=== PATIENT | male | born 1950 | race Caucasian/White ===

== ENCOUNTER 2016-10-25 16:40 | Observation (INO) | payer OTHER ==
[~2016-10-25] VITALS: Ht 172.7 cm; Wt 82.6 kg
[2016-10-25] MEDS: NS 1,000 ML IV SCH (01:00)
[~2016-10-25 16:40] MED LIST: LOPR50TA PO; METO1INJ PO; METO50TA2 PO; RISP1TAB21 PO
[2016-10-25 17:36] LABS: BASO % 0.4 % (0.0-1.0); EOS # 0.4 K/mm3 (0.0-0.50); EOS % 3.5 % (0.0-3.0); LARGE UNSTAINED CELL # 0.3 K/mm3 (0.0-0.4); LARGE UNSTAINED CELL % 2.9 % (0.0-4.0); LYMPH # 2.2 K/mm3 (1.5-4.5); LYMPH % 19.6 % (24.0-44.0); MEAN CORPUSCULAR HEMOGLOBIN 33.5 pg (27.0-33.0); MEAN CORPUSCULAR HGB CONC 35.3 g/dl (32.0-36.5); MONO # 0.4 K/mm3 (0.0-0.8); MONO % 3.8 % (0.0-5.0); NEUTROPHILS # 7.6 K/mm3 (1.8-7.7); NEUTROPHILS % 69.8 % (36.0-66.0); PLATELET COUNT, AUTOMATED 204 k/mm3 (150-450); RED CELL DISTRIBUTION WIDTH 12.7 % (11.5-14.5)
[2016-10-25 17:41] LABS: ANION GAP 13 MEQ/L (8-16); BLOOD UREA NITROGEN 10 MG/DL (7-18); CALCIUM LEVEL 8.2 MG/DL (8.8-10.2); CARBON DIOXIDE LEVEL 21 MEQ/L (21-32); CHLORIDE LEVEL 101 MEQ/L (98-107); CREATININE FOR GFR 0.77 MG/DL (0.70-1.30); GLOMERULAR FILTRATION RATE > 60.0 (>49); GLUCOSE, FASTING 120 MG/DL (80-110); POTASSIUM SERUM 3.7 MEQ/L (3.5-5.1); SODIUM LEVEL 135 MEQ/L (136-145)
--- NOTE | 2016-10-25 18:16 | REP ---
CT BRAIN WITHOUT CONTRAST: 10/25/2016. Clinical history: Syncope. Comparison: 04/22/2013. Findings: Lateral ventricles midline, symmetric and not abnormally dilated. There is mild cerebral atrophy, age appropriate and unchanged. Atrophy is greatest in the frontal and temporal lobes. Basal ganglia are symmetric and grossly normal. De Souza/white junction differentiation is well maintained. There is no vascular territory infarct, intracranial hemorrhage, mass, mass effect or edema. No extra-axial fluid collection. A few tiny calcifications along the falx. Brainstem unremarkable. Cerebellum shows no atrophy or mass. Basal cisterns are intact. Mastoids were intact. Sinuses show deviation of the nasal septum towards the right posteriorly and towards the left anteriorly. Globes and intraorbital contents symmetric and grossly normal. The calvarium and the skull base show no fracture or focal lesion. There are atherosclerotic calcifications in the carotid siphons. Impression: 1. No evidence of acute infarct, intracranial hemorrhage, mass, mass effect or edema. Mild cortical atrophy, stable since the 04/22/2013 exam. 2. Vascular calcifications in the carotid siphons. 3. Deviation of the nasal septum as described. No fracture skull base or calvarium. Signed by Bari Shabazz MD 10/25/2016 08:06 P
[2016-10-25] MEDS ORDERED: TETANUS/DIPHTHERIA TOX ADSORB ADULT 0.5ML SYR/VIAL (90714) IM ONE (19:00)
[2016-10-25] MEDS ORDERED: ceFAZolin SOD 1 GM in D5W MINI-BAG PLUS 50 ML IV ONE (19:00)
[2016-10-25 19:14] LABS: FREE T4 1.22 NG/DL (0.76-1.46)
[2016-10-25] MEDS ORDERED: BACITRACIN OINT 30GM TOP ONE (19:15)
[2016-10-25] MEDS ORDERED: MULTIVITAMIN -ADULT INJECTION 10 ML, THIAMINE INJection 100 MG, FOLIC ACID 1 MG in NS 1... IV ONE (19:30)
[2016-10-25] MEDS ORDERED: ONDANSETRON 4MG/2ML VIAL (J2405) IV PRN (20:15)
[2016-10-25] MEDS ORDERED: ACETAMINOPHEN 500 MG TAB PO PRN (20:15)
[2016-10-25] MEDS ORDERED: LORazepam 2 MG TAB PO PRN (20:15)
[2016-10-25] MEDS ORDERED: PATIENT COMMENT (20:21)
--- NOTE | 2016-10-25 22:10 | REPUSA ---
Clinical history: alcohol abuse, abdominal distention pain. Findings: The pancreas is limited in visualization secondary to overlying bowel gas, but appears mara sly unremarkable. The liver demonstrates heterogeneous increased echotexture and echogenicity, with n o mass lesions. The gallbladder contains a small amount of echogenic, non-shadowing debris. There is no gallbladder wall thickening. The common bile duct measures 4 mm and is within normal limits. The r ight kidney measures 11.9 x 4.4 x 6.2 cm, and is unremarkable. There is no ascites within any portion of the abdomen. Impression: 1. Fatty infiltration of the liver. 2. Gallbladder sludge. No gallstones appreciated. 3. No evidence of abdominal ascites.
--- NOTE | 2016-10-25 22:12 | HPE ---
DATE OF ADMISSION: 10/25/2016 PRIMARY CARE PROVIDER: At the [facility] ([place]) [place]. CHIEF COMPLAINT: 1. Fall in the hallway of apartment building with loss of consciousness after hitting the head when the patient was drunk. Emergency medical services (EMS) noted a heart rate of 30s on arrival. 2. Laceration of the back of the head. HISTORY OF PRESENT ILLNESS: This is a 66-year-old male who is a chronic alcoholic, drinks heavily 8-10 beers a day, who had gone out to a bar yesterday and had drank heavily. Early this morning, his neighbor heard a noise in the hallway and found the patient lying on the floor unconscious after hitting the head. The patient woke up, he was unconscious for about 2 minutes, however he was also intoxicated. The patient was noted to have a laceration at the back of the head and EMS was called. EMS found the patient to have a heart rate in the 30s on arrival which improved to 80s. He was alert and oriented times two. The patient does not remember who called the ambulance and how he came to the emergency room. He does remember going to the bar and the next thing he remembers is that he is in the hospital emergency room. He denied any fever or chills. Denies any headache except the region where he hurt himself. He received seven alok in the emergency room. He denied any chest pain or shortness of breath. Denied any abdominal pain, nausea, or vomiting. He does say he sometimes has diarrhea when he drinks heavily. He does complain of chronic back pain for which he takes marijuana. The patient is being admitted to the hospitalist service for syncope evaluation and alcohol intoxication. PAST MEDICAL HISTORY: 1. Hypertension. 2. Delusional disorder, persecutory type for which he was admitted to inpatient mental health unit (IM) in 2013 for a week. 3. Hypercholesteremia. 4. History of gastric ulcers in the past. PAST SURGICAL HISTORY: 1. Right knee repair. 2. Tonsillectomy. SOCIAL HISTORY: Patient abuses alcohol. Patient also uses marijuana, which he says he uses for his back pain and he is in the process of getting his marijuana use legalized. He is also a smoker. Does not use any other recreational drugs. HOME MEDICATIONS: - atenolol 50 mg daily, which he says he is taking ALLERGIES: PREDNISONE causes suicidal ideas and psychosis. REVIEW OF SYSTEMS: All ten point review of systems are negative except those mentioned in history of present illness (HPI). PHYSICAL EXAMINATION: VITAL SIGNS: Temperature 98.1, pulse 80, respiratory rate 18, blood pressure 100/56, pulse oximetry 97% at room air. GENERAL: Patient awake, alert, oriented times three, sitting up in bed, in no acute distress. HEENT: Normocephalic. Has a scalp trauma with several alok. Moist mucous membranes. Anicteric eyes. CHEST: Clear to auscultation. CARDIOVASCULAR: S1, S2, regular. No rub, murmur, or gallop. ABDOMEN: Obese, soft, nontender. Bowel sounds are present. There is an umbilical hernia which is reducible and nontender. EXTREMITIES: No edema. LABORATORY DATA: WBC 11, hemoglobin 14.8, platelet 204. Sodium 135, potassium 3.7, chloride 101, bicarbonate 21, BUN 10, creatinine 0.77, glucose 120, calcium 8.2. Liver function tests are normal, TSH 6.1, free T4 1.22. Blood alcohol level 0.242. RADIOLOGY: Head CT shows mild cortical atrophy stable since 2014, vascular calcifications in the carotid siphons, deviation of nasal septum. There is no fracture of the skull base or calvarium. No evidence of acute infarct, intracranial hemorrhage, or mass or edema. EKG sinus rhythm, rate of 72. ASSESSMENT: This is a 66-year-old male admitted for syncope and alcohol abuse. PLAN: 1. For syncope, we will monitor the patient on progressive care unit (PCU). Patient did have a documented pulse rate in 30s in the emergency medical services (EMS) sheet, however his EKG shows sinus rhythm with a rate in 70s. Will monitor the patient in progressive care unit (PCU) for any arrhythmias. Syncope is most probably related to alcohol abuse and alcohol intoxication. 2. Alcohol intoxication/abuse. Patient now coming out of his intoxicated state. Patient is noted to have mild distention of the abdomen so we will get an ultrasound of the abdomen to rule out for any ascites or for any hepatosplenomegaly. Will monitor the patient for withdrawal symptoms. Will place the patient on Clinical [place] Withdrawal Assessment (CIWA) protocol and also give Serax twice a day. 3. Hypertension. Patient says that he takes atenolol daily, however at present his blood pressure is in low normal and also he had some bradycardia so we will hold off on atenolol at this point. May need to change his antihypertensive medications on discharge. 4. Bradycardia as noted by emergency medical services (EMS). Could be related to atenolol. Will keep atenolol on hold and monitor the patient on telemetry for any other cardiac arrhythmias. 5. Deep venous thrombosis (DVT) prophylaxis. Early ambulation, thromboembolism deterrent (MICHELLE) stockings and sequential compression device. 6. Laceration of the scalp. Wound has seven alok. Bleeding has stopped, looks clean. Will continue to monitor that.
[2016-10-25 23:00] VITALS: BP 172/80
[2016-10-25 23:35] VITALS: BP 172/80
[2016-10-25] MEDS: OXAZEPAM 10 MG CAP PO SCH (23:44)
[2016-10-25] MEDS: THIAMINE 100 MG TAB PO SCH (23:44)
[2016-10-26] VITALS (9 sets, daily range): BP systolic 134–173; BP diastolic 82–95
--- NOTE | 2016-10-26 08:30 | ECGEPIP ---
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
[2016-10-26] MEDS: OXAZEPAM 10 MG CAP PO SCH ×2 (09:12→21:14)
[2016-10-26] MEDS: THIAMINE 100 MG TAB PO SCH ×2 (09:12→20:47)
[2016-10-26] MEDS: MULTIVITAMINS/MINERALS THERAP 1 TAB PO SCH (09:13)
[2016-10-26] MEDS: NS 1,000 ML IV SCH (09:13)
[2016-10-26] MEDS: FOLIC ACID 1 MG TAB PO SCH (09:13)
[2016-10-26 09:46] LABS: ALBUMIN/GLOBULIN RATIO 1.14 (1.00-1.93); ALKALINE PHOSPHATASE 97 U/L (45-117); ALT/SGPT 27 U/L (12-78); ANION GAP 11 MEQ/L (8-16); AST/SGOT 19 U/L (15-37); BILIRUBIN,TOTAL 0.5 MG/DL (0.2-1.0); BLOOD UREA NITROGEN 11 MG/DL (7-18); CALCIUM LEVEL 9.2 MG/DL (8.8-10.2); CARBON DIOXIDE LEVEL 25 MEQ/L (21-32); CHLORIDE LEVEL 107 MEQ/L (98-107); CREATININE FOR GFR 0.72 MG/DL (0.70-1.30); GLOMERULAR FILTRATION RATE > 60.0 (>49); GLUCOSE, FASTING 97 MG/DL (80-110); POTASSIUM SERUM 4.4 MEQ/L (3.5-5.1); SODIUM LEVEL 143 MEQ/L (136-145); TOTAL PROTEIN 7.5 GM/DL (6.4-8.2)
[2016-10-26 12:00] LABS: MEAN CORPUSCULAR HEMOGLOBIN 33.2 pg (27.0-33.0); MEAN CORPUSCULAR HGB CONC 35.7 g/dl (32.0-36.5); RED CELL DISTRIBUTION WIDTH 12.9 % (11.5-14.5); WHITE BLOOD COUNT 7.8 K/mm3 (4.0-10.0)
--- NOTE | 2016-10-26 12:31 | IPNPDOC ---
Subjective Date Seen The patient was seen on 10/26/16. Subjective Chief Complaint/HPI The patient is a 66-year-old male admitted with a reason for visit of Alcohol Intoxication,Laceration Of Head,Syncope. He was brought to [facility] via ambulance after he had been out drinking and as per neighbor fell and hit his head, suffering a laceration requiring 7 alok. He doesn't remember being brought to the hospital and had thought he drove himself here. This morning he was seen laying comfortably in bed, AAOx3. Upon beginning the exam he immediately lapsed into a monologue about how his neighbor is poisoning him with insecticides. He has a past medical history of delusional disorder persecutory subtype. It was difficult to keep the patient on track for the exam due to his delusions. His nurse reports no events overnight, no telemetry events overnight , and patient states he slept comfortably. General: Reports: Normal Appetite, Other Symptoms (feels well, wants to go home ) Eyes: Denies: Vision change ENT: Reports: Head Aches (located around his laceration in right occipital region) Pulmonary: Denies: Dyspnea, Cough Cardiovascular: Reports: Lt Headedness (when rising from a seated position), Denies: Chest Pain Gastrointestinal: Denies: Nausea, Vomiting, Abdominal Pain, Diarrhea Psych: Reports: Anxiety (anxious that his neighbor has access to his apartment while he is in the hospital) Objective Physical Examination General Exam: Positive: Alert, Cooperative, No Acute Distress, Other ( normocephalic with laceration in right occipital region, well-nourished, appears stated age ) Eye Exam: Positive: PERRLA, Conjunctiva & lids normal ENT Exam: Positive: Atraumatic, Mucous membr. moist/pink Neck Exam: Positive: Supple, Negative: JVD Chest Exam: Positive: Clear to auscultation, Normal air movement, Negative: Rales, Rhonchi, Wheezing Heart Exam: Positive: Rate Normal, Regular Rhythm, Normal S1, Normal S2 Telemetry: Positive: No significant arrhythmia, Sinus Abdomen Exam: Positive: Normal bowel sounds, Soft, Other (distended), Negative: Tenderness Extremity Exam: Positive: Normal pulses, Negative: Cyanosis, Edema, Swelling Skin Exam: Positive: Nl turgor and temperature Psych Exam: Positive: Anxiety, Oriented x 3, Negative: Mental status NL (frequently vocalized delusions about his neighbor poisoning him with insectides ) Assessment /Plan Assessment 1. Syncope. Likely 2/2 intoxication. Patient is in PCU being monitored on telemetry, with no recorded events overnight. Patient admits to becoming light headed when rising from a seated position. Orthostatic vital signs were ordered to assess for orthostatic hypotension as a possible etiology, likely cause can be residual effects from bradycardic heart rate on admission. 2. chronic alcoholism. Patient is on CIWA protocol. Patient is receiving Serax 10mg BID PO, Ativan 2mg PRN, thiamine, folate, and a multivitamin. Patient received banana bag on 10/25 in ED. Stopped the IV fluid this morning, patient has adequate PO fluid intake. 3. HTN. Patient normally takes atenolol to control his BP. Yesterday he was bradycardic at 30 per the EMT who brought him to the hospital and no atenolol was given. Today his BP was 148/84 at 8am. Due to patient's age and JNC 8 recommendations this is an acceptable blood pressure to keep him at. We will continue to monitor him. 4. Delusional Disorder persecutory subtype. Patient was admitted to [facility] in 2014 for one week. Patient expresses similar delusions as his 2014 admission about his neighbor poisoning him with insecticides. After discussing with Dr. Blair, we feel like this is the patient baseline and we have consulted psych and will wait for their recommendations. 5. Scalp laceration. Patient has a right sided occipital laceration that required 7 alok in the ED yesterday. Today the wound appears clean and dry. There is noticeable erythema and dried blood around the wound, but no pus/ drainage is appreciated. Continue to monitor. 6. Headache. Patient reports this as a dull ache. Patient is on acetaminophen 1000mg Q6HP PRN PO. 7. DVT prophylaxis. TEDS and SCDs are in place. Plan/VTE VTE Prophylaxis Ordered?: Yes VS, I&O, 24H, Fishbone Vital Signs/I&O Vital Signs Date Time Temp Pulse Resp B/P (MAP) Pulse Ox O2 Delivery O2 Flow Rate FiO2 10/26/16 08:05 74 148/84 10/26/16 07:49 97.7 18 94 Room Air 10/25/16 16:44 2.0 Laboratory Data 24H LABS Laboratory Tests 2 10/25/16 17:04: White Blood Count 11.0H, Red Blood Count 4.42, Hemoglobin 14.8, Hematocrit 41.9L , Mean Corpuscular Volume 95.0, Mean Corpuscular Hemoglobin 33.5H, Mean Corpuscular Hemoglobin Concent 35.3, Red Cell Distribution Width 12.7, Platelet Count 204, Neutrophils (%) (Auto) 69.8H, Lymphocytes (%) (Auto) 19.6L, Monocytes (%) (Auto) 3.8, Eosinophils (%) (Auto) 3.5H, Basophils (%) (Auto) 0.4 , Neutrophils # (Auto) 7.6, Lymphocytes # (Auto) 2.2, Monocytes # (Auto) 0.4, Eosinophils # (Auto) 0.4, Basophils # (Auto) 0.0, Large Unclassified Cells % 2.9 , Large Unclassified Cells # 0.3, Anion Gap 13, Glomerular Filtration Rate > 60.0, Blood Urea Nitrogen 10, Creatinine 0.77, Sodium Level 135L, Potassium Level 3.7, Chloride Level 101, Carbon Dioxide Level 21, Calcium Level 8.2L, Total Creatine Kinase 93, Creatine Kinase MB 3.1, Creatine Kinase MB Relative Index 3.33, Troponin I < 0.02, Thyroid Stimulating Hormone (TSH) 6.150H, Free Thyroxine 1.22, Ethyl Alcohol Level 0.242H 10/26/16 08:52: Anion Gap 11, Glomerular Filtration Rate > 60.0, Blood Urea Nitrogen 11, Creatinine 0.72, Sodium Level 143#, Potassium Level 4.4, Chloride Level 107, Carbon Dioxide Level 25, Calcium Level 9.2, Aspartate Amino Transf (AST/SGOT) 19 , Alanine Aminotransferase (ALT/SGPT) 27, Alkaline Phosphatase 97, Total Bilirubin 0.5, Total Protein 7.5, Albumin 4.0, Albumin/Globulin Ratio 1.14 CBC/BMP Laboratory Tests 10/25/16 17:04 Red Blood Count 4.42, Mean Corpuscular Volume 95.0, Mean Corpuscular Hemoglobin 33.5 H, Mean Corpuscular Hemoglobin Concent 35.3, Red Cell Distribution Width 12.7, Neutrophils (%) (Auto) 69.8 H, Lymphocytes (%) (Auto) 19.6 L, Monocytes (% ) (Auto) 3.8, Eosinophils (%) (Auto) 3.5 H, Basophils (%) (Auto) 0.4, Neutrophils # (Auto) 7.6, Lymphocytes # (Auto) 2.2, Monocytes # (Auto) 0.4, Eosinophils # (Auto) 0.4, Basophils # (Auto) 0.0, Calcium Level 8.2 L, Total Creatine Kinase 93 10/26/16 08:52 Calcium Level 9.2, Aspartate Amino Transf (AST/SGOT) 19, Alanine Aminotransferase (ALT/SGPT) 27, Alkaline Phosphatase 97, Total Bilirubin 0.5, Total Protein 7.5, Albumin 4.0 GME ATTESTATION GME ATTESTATION My preceptor for this patient encounter was physically present in the building during the encounter and was fully available. As needed, all aspects of the patient interview, examination, medical decision making process, and medical care plan development were reviewed and approved by the preceptor. Preceptor is aware and concurs with the plan as stated in the body of this note and will attest to such by his/her cosignature. BEAU JACKSON DO Oct 26, 2016 10:19
[2016-10-26 13:10] LABS: ANION GAP 6 MEQ/L (8-16); BLOOD UREA NITROGEN 14 MG/DL (7-18); CALCIUM LEVEL 9.5 MG/DL (8.8-10.2); CARBON DIOXIDE LEVEL 26 MEQ/L (21-32); CHLORIDE LEVEL 108 MEQ/L (98-107); CREATININE FOR GFR 0.74 MG/DL (0.70-1.30); GLOMERULAR FILTRATION RATE > 60.0 (>49); GLUCOSE, FASTING 122 MG/DL (80-110); POTASSIUM SERUM 4.3 MEQ/L (3.5-5.1); SODIUM LEVEL 140 MEQ/L (136-145)
[2016-10-27] VITALS: BP 134/79
[2016-10-27 04:34] VITALS: BP 159/95
[2016-10-27 07:27] LABS: MEAN CORPUSCULAR HEMOGLOBIN 33.7 pg (27.0-33.0); MEAN CORPUSCULAR HGB CONC 35.8 g/dl (32.0-36.5); MEAN CORPUSCULAR VOLUME 94.2 fl (80.0-96.0); RED CELL DISTRIBUTION WIDTH 12.8 % (11.5-14.5); WHITE BLOOD COUNT 6.8 K/mm3 (4.0-10.0)
[2016-10-27 07:38] VITALS: BP 158/74
[2016-10-27 07:53] LABS: ANION GAP 6 MEQ/L (8-16); BLOOD UREA NITROGEN 12 MG/DL (7-18); CALCIUM LEVEL 9.1 MG/DL (8.8-10.2); CARBON DIOXIDE LEVEL 30 MEQ/L (21-32); CHLORIDE LEVEL 105 MEQ/L (98-107); CREATININE FOR GFR 0.79 MG/DL (0.70-1.30); GLOMERULAR FILTRATION RATE > 60.0 (>49); GLUCOSE, FASTING 134 MG/DL (80-110); POTASSIUM SERUM 4.3 MEQ/L (3.5-5.1); SODIUM LEVEL 141 MEQ/L (136-145)
[2016-10-27] MEDS: MULTIVITAMINS/MINERALS THERAP 1 TAB PO SCH (08:21)
[2016-10-27] MEDS: FOLIC ACID 1 MG TAB PO SCH (08:21)
[2016-10-27] MEDS: THIAMINE 100 MG TAB PO SCH (08:21)
[2016-10-27] MEDS: OXAZEPAM 10 MG CAP PO SCH (08:21)
[2016-10-27] MEDS ORDERED: INFLUENZA VIRUS VACCINE HIGH DOSE 0.5 ML SYRINGE (90662) IM ONE (09:00)
[2016-10-27] MEDS ORDERED: PREVNAR 13 VACCINE SYRINGE (CPT CODE:90670) IM ONE (09:00)
[2016-10-27 09:04] VITALS: BP 158/74
[2016-10-27] MEDS ORDERED: SLF 3 ML SYR IV PRN (10:30)
[2016-10-27] MEDS ORDERED: LISI-538 PO (11:07)
[2016-10-27] MEDS ORDERED: SLF 3 ML SYR IV SCH (14:00)
--- NOTE | 2016-10-27 19:53 | DS.PDOC ---
Discharge Summary General Date of Admission Oct 25, 2016 at 20:07 Date of Discharge 10/27/16 Attending Physician: JG LAWTON MD Discharge Summary PROCEDURES PERFORMED DURING STAY: EKG ADMITTING DIAGNOSES: 1. Syncope 2. Alcohol intoxication/abuse. 3. Hypertension. 4. Bradycardia as noted by emergency medical services (EMS). 5. Laceration of the scalp. DISCHARGE DIAGNOSES: 1. Syncope. 2. chronic alcoholism. 3. HTN. 4. Delusional Disorder persecutory subtype. 5. Scalp laceration. 6. Headache. COMPLICATIONS/CHIEF COMPLAINT: Alcohol Intoxication,Laceration Of Head,Syncope. HISTORY OF PRESENT ILLNESS: This is a 66-year-old male who is a chronic alcoholic, drinks heavily 8-10 beers a day, who had gone out to a bar on 10/24 and had drank heavily. Early in the morning on 10/25, his neighbor heard a noise in the hallway and found the patient lying on the floor unconscious after hitting the head. The patient woke up, he was unconscious for about 2 minutes, however he was also intoxicated. The patient was noted to have a laceration at the back of the head and EMS was called. EMS found the patient to have a heart rate in the 30s on arrival which improved to 80s. He was alert and oriented times two. The patient does not remember who called the ambulance and how he came to the emergency room. He does remember going to the bar and the next thing he remembers is that he is in the hospital emergency room. He denied any fever or chills. Denied any headache except the region where he hurt himself. He received seven alok in the emergency room. He denied any chest pain or shortness of breath. Denied any abdominal pain, nausea, or vomiting. He does say he sometimes has diarrhea when he drinks heavily. He does complain of chronic back pain for which he takes marijuana. The patient was admitted to the hospitalist service for syncope evaluation and alcohol intoxication. HOSPITAL COURSE: Patient was admitted to hospitalist service on 10/25 for reason of syncope with fall and alcohol intoxication. Syncope was likely secondary to the intoxication. Patient was in PCU being monitored on telemetry, with no recorded events during his stay. Patient admitted to becoming light headed when rising from a seated position. Orthostatic vital signs were ordered to assess for orthostatic hypotension as a possible etiology and were negative. Another likely cause can be residual effects from bradycardic heart rate on admission. Patient has a history of chronic alcoholism. Patient was on CIWA protocol. Patient received Serax 10mg BID PO, Ativan 2mg PRN, thiamine, folate, and a multivitamin. Patient received banana bag on 10/25 in ED. His IV fluids were stopped 10/26 as patient had adequate PO fluid intake. HTN. Patient normally takes atenolol to control his BP. Upon admission he was bradycardic at 30 per the EMT who brought him to the hospital and no atenolol was given, furthermore no atenolol was required during his hospital stay as BP remained within normal limits. Patient has a history of Delusional Disorder persecutory subtype. Patient was admitted to [facility] in 2013 for one week. Patient expresses similar thought processes that warranted his 2014 admission about his neighbor poisoning him with insecticides. Dr. Kirkland was consulted yesterday for assessment and concluded that no inpatient admission was necessary at this time. Patient has a right sided occipital laceration sustained during his fall that required 7 alok in the ED on 10/25. Today the wound appears clean and dry. There is noticeable erythema and dried blood around the wound, but no pus/ drainage is appreciated. Patient reports a dull headache amenable to acetaminophen 1000mg Q6HP PRN PO. DISCHARGE MEDICATIONS: Please see below. ALLERGIES: Please see below. PHYSICAL EXAMINATION ON DISCHARGE: VITAL SIGNS: Please see below. GENERAL: patient alert and awake, in no apparent distress, resting comfortably in bed HEENT: normocephalic, mucous membranes are moist and pink, no scleral icterus, laceration in the right occipital region with [address] NECK: supple, no JVD, no lymphadenopathy CARDIOVASCULAR EXAMINATION: regular rate and rhythm, positive S1 and S2, no murmurs/rubs/gallops appreciated RESPIRATORY EXAMINATION: clear to auscultation bilaterally ABDOMINAL EXAMINATION: EXTREMITIES: no edema/cyanosis/swelling SKIN: no rashes, normal turgor/temperature LABORATORY DATA: Please see below. IMAGING: Head CT revealed no evidence of acute infarct, intracranial hemorrhage , mass, mass effect or edema. Mild cortical atrophy, stable since the 2013 exam. Vascular calcifications were appreciated in the carotid sinus as well as deviation of the nasal septum. No fracture of the skull base or calvarium was appreciated. US of the abdomen revealed fatty infiltration of the liver, gallbladder sludge with no gallstones appreciated. There was no evidence of abdominal ascites. ACTIVITY: As tolerated. DIET: As tolerated. DISCHARGE PLAN: 1. Syncope. Likely 2/2 intoxication. Patient was monitored on telemetry during his hospital stay with no recorded events/arrhythmias. Patient is currently stable. Orthostatic vital signs were negative. As precaution and because he was bradycardic on arrival, his scheduled atenolol has been discontinued. 2. chronic alcoholism. Patient was on CIWA protocol during his hospital stay. Patient is recieved Serax 10mg BID PO, Ativan 2mg PRN, thiamine, folate, and a multivitamin. Patient is currently stable, no episodes of seizures, delirium tremens or other symptomatology of alcohol withdrawal and none were reported from previous admissions. Patient will not be discharged on CIWA medications for this reason. Educated patient on alcohol cessation. 3. HTN. Patient normally takes atenolol to control his BP. Upon arrival he was bradycardic at 30bpm per the EMT who brought him to the hospital and no atenolol was given. No blood pressure medication was given during his stay. His home atenolol was cancelled and a patient was discharged with a script for Lisinopril 20mg once a day, as ASHLEY inhibitors are first line for hypertension per JNC 8 recommendations. 4. Delusional Disorder persecutory subtype. Dr. Kirkland evaluated the patient yesterday and concluded he did not require inpatient psychiatric treatment at this time. I recommend follow up care with a psychiatrist as outpatient. 5. Scalp laceration. Patient has a right sided occipital laceration that required 7 alok in the ED yesterday. Today the wound appears clean and dry. There is noticeable erythema and dried blood around the wound, but no pus/ drainage is appreciated. Patient is instructed to follow up with his PCP in 3 days for staple removal. 6. Headache. Patient reports this as a dull ache at the area of his laceration amenable to acetaminophen. Patient is to follow up with his PCP in 3 days to remove the alok, which should alleviate the headache. His PCP can recommend management for his headache if it still persists. DISCHARGE INSTRUCTIONS: 1. Fill paper script for Lisinopril. ITEMS TO FOLLOWUP ON OUTPATIENT: 1. Follow up with PCP in 3 days to remove alok. 2. Follow up with outpatient psychiatrist via [place]. DISCHARGE CONDITION: [Stable]. TIME SPENT ON DISCHARGE: Greater than minutes Vital Signs/I&Os Vital Signs Date Time Temp Pulse Resp B/P (MAP) Pulse Ox O2 Delivery O2 Flow Rate FiO2 10/27/16 09:04 75 158/74 10/27/16 07:38 97.1 18 97 Room Air 10/25/16 16:44 2.0 Laboratory Data Labs 24H Laboratory Tests 2 10/26/16 12:15: Anion Gap 6L, Glomerular Filtration Rate > 60.0, Blood Urea Nitrogen 14, Creatinine 0.74, Sodium Level 140, Potassium Level 4.3, Chloride Level 108H, Carbon Dioxide Level 26, Calcium Level 9.5 10/27/16 07:10: Anion Gap 6L, Glomerular Filtration Rate > 60.0, Blood Urea Nitrogen 12, Creatinine 0.79, Sodium Level 141, Potassium Level 4.3, Chloride Level 105, Carbon Dioxide Level 30, Calcium Level 9.1 CBC/BMP Laboratory Tests 10/26/16 12:15 Calcium Level 9.5 10/27/16 07:10 Calcium Level 9.1, Red Blood Count 4.72, Mean Corpuscular Volume 94.2, Mean Corpuscular Hemoglobin 33.7 H, Mean Corpuscular Hemoglobin Concent 35.8, Red Cell Distribution Width 12.8 Discharge Medications Scheduled Lisinopril (Lisinopril) 20 Mg Tab, 20 MG PO DAILY Allergies Coded Allergies: Prednisone (Verified Adverse Reaction, Severe, SUICIDAL IDEATION with STEROIDS, 04/22/13) BEAU JACKSON DO Oct 27, 2016 12:06
--- NOTE | 2016-11-27 12:58 | MHCR ---
DATE OF CONSULTATION: 10/26/2016 HISTORY OF PRESENT ILLNESS: I was asked to see this 66-year-old man who was admitted to the medical service after the patient fell and experienced a laceration on the back of his head and some loss of consciousness. The patient has a chronic problem with alcohol abuse. He had just returned from the bar. The concern is that the patient appears to have chronic delusions about his neighbors spraying pesticide into his apartment. Since the patient has a history of at least prior psychiatric hospitalization to [facility] inpatient mental health unit in 2013, they felt that it would be good to consult psychiatrist. I did review the records from the patient's prior hospitalization and at that point, the patient indicated that again he had chronic delusions about the neighbor spraying pesticides into his apartment and he had stated that he felt that she was trying to kill him and that he had wanted to throw her out the window; however, the patient denied having any true intent of hurting anybody. He was discharged on Risperdal 1 mg at night, but the patient is chronically noncompliant with any medications or outpatient treatment. When I saw the patient today, he does indeed continue to have chronic delusions about the neighbor trying to poison him through pesticides that she sprays through to his apartment. He however states that he has at times said that he has wanted to throw her out the window but that he does not really mean it or having any intentions of harming her. He states that he has never harmed anybody before. He does not have much insight about this being part of his illness; however. I did not elicit any other symptoms, such as depressive symptoms or problems with anxiety or any hypomanic or manic-like symptoms. PAST PSYCHIATRIC HISTORY: This is as noted above. He was admitted to [facility] in 2013 with similar presentation at [facility] inpatient mental health unit and then subsequent to that, soon after that admission, he was admitted to [facility]. He has no history of any suicidal attempts. SUBSTANCE ABUSE: The patient does have a problem with abusing alcohol and drinks daily. He also uses cannabis chronically. FAMILY HISTORY: He is adopted and so unable to obtain family history. MENTAL STATUS EXAMINATION: The patient is alert and oriented times three. He is pleasant. He is cooperative. He is verbally spontaneous. There is no formal thought disorder noted. His mood is good. Affect is full range and appropriate. He does have chronic paranoid delusions about a neighbor trying to kill him. He is not psychotic, suicidal or homicidal. Concentration is fairly good. Memory intact. Insight and judgment is fair. He has little insight about having a psychiatric illness. DIAGNOSES: 1. Delusional disorder, persecutory type. 2. Alcohol use disorder, severe. 3. Cannabis use disorder, severe. TREATMENT RECOMMENDATIONS: The patient does have chronic paranoid delusions about his neighbor; however, at this point, he continues to state that he has no intentions of hurting this neighbor. He has no history of hurting anyone. He is chronically noncompliant with his psychiatric medications and has very poor insight about his psychiatric illness. However, he is not felt to be a danger to himself or others at this point and there is no indication for hospitalization at this point. IZA
== END 2016-10-27 12:45 | disposition home or self-care (01) ==
LOC: M ED 16:40 → M ED INP 20:07 → M PCU 23:32
PROVIDERS: ADMIT Internal Medicine Nephrology; ATTEND Internal Medicine
DX: R55 Syncope and collapse (principal); F10.20 Alcohol dependence, uncomplicated; F12.10 Cannabis abuse, uncomplicated; I10 Essential (primary) hypertension; R00.1 Bradycardia, unspecified; F22 Delusional disorders; S01.01XA Laceration without foreign body of scalp, initial encounter; W19.XXXA Unspecified fall, initial encounter; Y92.099 Unspecified place in other non-institutional residence as the place of occurrence of the external cause; Y99.9 Unspecified external cause status; R51 Headache; Z79.899 Other long term (current) drug therapy; F17.210 Nicotine dependence, cigarettes, uncomplicated; Z88.8 Allergy status to other drugs, medicaments and biological substances; Y93.9 Activity, unspecified; Z91.81 History of falling
CPT/HCPCS: 12002; 36415; 70450; 76705; 80048; 80053; 82550; 82553; 84439; 84443; 84484; 85025; 85027; 90471; 90662; 90670; 90714; 93005; 93041; 94760; 96361; 96374; 99285; G0009; G0378; G0480; J0690; J3411

== ENCOUNTER 2020-12-04 22:55 | Emergency (ER) | payer OTHER ==
[~2020-12-04] VITALS: Ht 167.6 cm; Wt 72.7 kg
[~2020-12-04 22:55] MED LIST changes: +LISI20TA33 PO; +PATIENT COMMENT
--- OUTSIDE RECORDS SUMMARY | 2020-12-04 22:58 | CCD ---
Author Author [facility] Address Unknown Phone Unavailable Support Name Relationship Address Phone DISABLED Next Of Kin Unknown Unavailable UN Next Of Kin Unknown Unavailable SHELTON PORTER Next Of Kin [address] [place] [address] Re-disclosure Warning The records that you are about to access may contain information from federally-assisted alcohol or drug abuse programs. If such information is present, then the following federally mandated warning applies: This information has been disclosed to you from records protected by federal confidentiality rules (42 CFR part 2). The federal rules prohibit you from making any further disclosure of this information unless further disclosure is expressly permitted by the written consent of the person to whom it pertains or as otherwise permitted by 42 CFR part 2. A general authorization for the release of medical or other information is NOT sufficient for this purpose. The Federal rules restrict any use of the information to criminally investigate or prosecute any alcohol or drug abuse patient.The records that you are about to access may contain highly sensitive health information, the redisclosure of which is protected by Article 27-F of the [facility] Public Health law. If you continue you may have access to information: Regarding HIV / AIDS; Provided by facilities licensed or operated by the [facility] Office of Mental Health; or Provided by the [facility] Office for People With Developmental Disabilities. If such information is present, then the following [facility] mandated warning applies: This information has been disclosed to you from confidential records which are protected by state law. State law prohibits you from making any further disclosure of this information without the specific written consent of the person to whom it pertains, or as otherwise permitted by law. Any unauthorized further disclosure in violation of state law may result in a fine or longterm sentence or both. A general authorization for the release of medical or other information is NOT sufficient authorization for further disc losure. Medications No Information Insurance Providers Payer name Policy type / Coverage type Policy ID Covered democrat ID Covered democrat's relationship to maya Policy Maya Plan Information 'S ADMINISTRATION [id number] SP [id number] [facility] [id number] SP [id number] MEDICAID [id number] SP [id number] Problems, Conditions, and Diagnoses No Information Surgeries/Procedures No Information Results No Information Social History No Information
--- NOTE | 2020-12-04 23:59 | REPVR ---
PROCEDURE INFORMATION: Exam: XR Chest Exam date and time: 12/04/2020 11:39 PM Age: 70 years old Clinical indication: Other: Muscle aches for 5 days TECHNIQUE: Imaging protocol: XR of the chest. Views: 1 view. COMPARISON: No relevant prior studies available. FINDINGS: Lungs: Increased lucency of lung suggesting bullous change. Minimal lateral right base infiltrate. Pleural spaces: Unremarkable. No pleural effusion. No pneumothorax. Heart/Mediastinum: Unremarkable. No cardiomegaly. Bones/joints: Unremarkable. IMPRESSION: 1. Suggestion of some degree of COPD with bullous change. 2. Minimal lateral right base infiltrate. Electronically signed by: Lv Webber On 12/04/2020 23:58:48 PM
[2020-12-05 00:12] LABS: HEMATOCRIT 36.4 % (42.0-52.0); HEMOGLOBIN 12.7 g/dl (13.5-17.5); MEAN CORPUSCULAR HEMOGLOBIN 29.7 pg (27.0-33.0); MEAN CORPUSCULAR HGB CONC 34.9 g/dl (32.0-36.5); MEAN CORPUSCULAR VOLUME 85.2 fl (80.0-96.0); PLATELET COUNT, AUTOMATED 394 10^3/uL (150-450); RED BLOOD COUNT 4.27 10^6/uL (4.30-6.10); WHITE BLOOD COUNT 16.9 10^3/uL (4.0-10.0)
[2020-12-05 00:26] LABS: INR 1.23; PROTHROMBIN TIME 15.9 SECONDS (12.7-14.5)
[2020-12-05 00:27] LABS: PARTIAL THROMBOPLASTIN TIME 31.3 SECONDS (25.9-37.0)
[2020-12-05 00:45] LABS: ANISOCYTOSIS 2+; LYMPHOCYTES 9 % (16-44); METAMYELOCYTES 1 % (0-0); MONOCYTES 7 % (0-5); NEUTROPHILS 81 % (28-66); PLATELET ESTIMATE NORMAL (NORMAL)
[2020-12-05 00:49] LABS: STOMATOCYTES 1+
[2020-12-05 00:55] LABS: ALT/SGPT 264 U/L (12-78); BILIRUBIN,TOTAL 22.6 MG/DL (0.2-1.0); BLOOD UREA NITROGEN 22 MG/DL (7-18); CARBON DIOXIDE LEVEL 21 MEQ/L (21-32); CHLORIDE LEVEL 94 MEQ/L (98-107); CK-MB VALUE MASS 1.2 NG/ML (<3.6); CPK CREATINE PHOSPHOKINASE 42 U/L (39-308); CREATININE FOR GFR 1.09 MG/DL (0.70-1.30); ETHYL ALCOHOL (ETHANOL) < 0.003 % (0.000-0.010); GLOMERULAR FILTRATION RATE > 60.0 (>42); GLUCOSE, FASTING 142 MG/DL (70-100); LIPASE 345 U/L (73-393); MB/CK RELATIVE INDEX 2.86 (< OR =4); POTASSIUM SERUM 3.4 MEQ/L (3.5-5.1); SODIUM LEVEL 129 MEQ/L (136-145); TOTAL PROTEIN 5.6 GM/DL (6.4-8.2); TROPONIN I < 0.02 NG/ML (< 0.10)
[2020-12-05 01:16] LABS: BILIRUBIN,DIRECT 18.5 MG/DL (0.0-0.2)
[2020-12-05] MEDS ORDERED: ISOVUE-370 76% 100ML VIAL As Ordered ONE (01:30)
[2020-12-05] MEDS ORDERED: PIPERACILLIN/TAZOBACTAM SOD 4.5 GM in D5W MINI-BAG PLUS 50 ML IV ONE (01:45)
[2020-12-05] MEDS ORDERED: NS 1,000 ML IV ONE (01:45)
--- NOTE | 2020-12-05 02:06 | REPVR ---
PROCEDURE INFORMATION: Exam: US Abdomen, Limited; Right Upper Quadrant Exam date and time: 12/05/2020 1:27 AM Age: 70 years old Clinical indication: Abdominal pain; Acute; Additional info: Painless jaundice TECHNIQUE: Imaging protocol: US abdomen. Real time ultrasound with image documentation. Limited exam focused on the right upper quadrant. COMPARISON: Abdomen, limited US 10/25/2016 9:40 PM FINDINGS: Liver: The liver demonstrates no focal defects. Gallbladder: The gallbladder demonstrates a thick heterogeneous wall with pericholecystic fluid or wall edema. The wall measures 8 mm. Small stones are noted with sludge. Common bile duct: The CBD measures 19 mm. Pancreas: The pancreas is not seen due to gas shadowing. Right kidney: The right kidney is normal with no hydronephrosis measuring 10.0 cm. There is a small right renal cyst measuring 10 x 10 x 11 mm. IMPRESSION: 1. Cholelithiasis with small stones and sludge with prominent gallbladder wall thickening and pericholecystic fluid and wall edema consistent with cholecystitis. 2. Dilated CBD measuring 19 mm. Electronically signed by: Lv Webber On 12/05/2020 02:05:47 AM
--- OUTSIDE RECORDS SUMMARY | 2020-12-05 02:22 | CCD ---
Author Author [facility] Address Unknown Phone Unavailable Support Name Relationship Address Phone DISABLED Next Of Kin Unknown Unavailable UN Next Of Kin Unknown Unavailable SHELTON PORTER Next Of Kin [address] [place] [address] Re-disclosure Warning The records that [...] is protected by Article 27-F of the [facility] Public Health law. If you continue you may have access to information: Regarding HIV / AIDS; Provided by facilities licensed or operated by the [facility] Office of Mental Health; or Provided by the [facility] Office for People With Developmental Disabilities. If such information is present, then the following [facility] mandated warning applies: This information has been [...] law may result in a fine or fdc sentence or both. A general authorization for the release of medical or other information is NOT sufficient authorization for further disc losure. Medications No Information Insurance Providers Payer name Policy type / Coverage type Policy ID Covered republican ID Covered republican's relationship to maya Policy Maya Plan Information 'S ADMINISTRATION [id number] SP [id number] [facility] [id number] SP [id number] MEDICAID [id number] SP [id number] Problems, Conditions, and Diagnoses No Information Surgeries/Procedures No Information Results No Information Social History No Information
--- NOTE | 2020-12-05 02:30 | REPVR ---
PROCEDURE INFORMATION: Exam: CT Chest With Contrast; Diagnostic Exam date and time: 12/05/2020 1:49 AM Age: 70 years old Clinical indication: Fever; Additional info: Fever, possible pneumonia, painless jaundice TECHNIQUE: Imaging protocol: Diagnostic computed tomography of the chest with contrast. Radiation optimization: All CT scans at this facility use at least one of these dose optimization techniques: automated exposure control; mA and/or kV adjustment per patient size (includes targeted exams where dose is matched to clinical indication); or iterative reconstruction. Contrast material: ISOVUE 370; Contrast volume: 100 ml; Contrast route: INTRAVENOUS (IV); COMPARISON: CR PORTABLE CHEST X-RAY 12/04/2020 11:27 PM FINDINGS: Lungs: Minimal diffuse bullous change with slight interstitial coarsening. No consolidation. No masses. Pleural spaces: Unremarkable. No pneumothorax. No pleural effusion. Heart: Unremarkable. No cardiomegaly. No pericardial effusion. Pulmonary arteries: The main pulmonary artery measures 21 mm. Aorta: The ascending thoracic aorta measures 33 mm. Lymph nodes: Pancreatic head mass measuring approximately 3.2 cm with multilobular surrounding masses consistent with peripancreatic adenopathy and metastasis. These masses and encase the main portal vein which is significantly narrowed and encase branches of the celiac artery. These enlarged nodes extend between the IVC and main portal vein and are present to the right of the aorta surrounding the right renal artery. Diaphragm: Minimal hiatal hernia. Gallbladder and bile ducts: Intrahepatic biliary dilatation. Layering sludge and possible faint stones in the gallbladder with pericholecystic fluid or wall edema. The CBD measures 19 mm. Spleen: Mass in the splenic hilum measuring 3.9 x 4.0 x 3.4 cm consistent with metastatic lesion. Bones/joints: Unremarkable. No acute fracture. Soft tissues: Unremarkable. IMPRESSION: 1. Biliary dilatation with distended CBD measuring 19 mm extending into a mass of the pancreatic head with extensive peripancreatic adenopathy consistent with pancreatic malignancy and metastasis. There is encasement and prominent narrowing of the proximal main portal vein. 2. Metastatic lesion in the splenic hilum measuring 3.9 x 4.0 x 3.4 cm. 3. Gallbladder sludge and probable faint stones with prominent pericholecystic fluid or wall edema. 4. Minimal hiatal hernia. 5. Minimal diffuse pulmonary bullous change with slight interstitial coarsening. Electronically signed by: Lv Webber On 12/05/2020 02:29:17 AM
--- NOTE | 2020-12-05 02:37 | REPVR ---
PROCEDURE INFORMATION: Exam: CT Abdomen And Pelvis With Contrast Exam date and time: 12/05/2020 1:49 AM Age: 70 years old Clinical indication: Fever; Additional info: Fever, possible pneumonia, painless jaundice TECHNIQUE: Imaging protocol: Computed tomography of the abdomen and pelvis with contrast. Radiation optimization: All CT scans at this facility use at least one of these dose optimization techniques: automated exposure control; mA and/or kV adjustment per patient size (includes targeted exams where dose is matched to clinical indication); or iterative reconstruction. Contrast material: ISOVUE 370; Contrast volume: 100 ml; Contrast route: INTRAVENOUS (IV); COMPARISON: LIVER US 12/05/2020 1:33 AM FINDINGS: Lungs: Bibasilar bullous change in the lungs. Diaphragm: Minimal hiatal hernia. Liver: Normal. No mass. Gallbladder and bile ducts: Intrahepatic biliary dilatation with 19 mm CBD which abruptly terminates into a pancreatic head mass which measures approximately 3.5 cm. There is surrounding lobular peripancreatic adenopathy which encases the main portal vein with narrowing. There is also compression and narrowing of the IVC. These nodules surround the right renal artery as well consistent with metastasis. The gallbladder is somewhat contracted with layering sludge and probable faint stones with prominent pericholecystic fluid or wall edema. Pancreas: See "Gallbladder and bile ducts" finding. Spleen: There is a mass lesion in the splenic hilum measuring 3.8 x 4.3 x 3.2 cm consistent with metastasis. Adrenal glands: Normal. No mass. Kidneys and ureters: Small low-attenuation nodules of the kidneys measuring up to 14 mm on the right consistent with cysts. No follow-up imaging is recommended. Stomach and bowel: There is colonic diverticulosis without evidence of diverticulitis. There upper normal fluid-filled small bowel which is nonspecific. Appendix: There are no changes of appendicitis. A normal appendix is not seen. Intraperitoneal space: Unremarkable. No free air. No significant fluid collection. Vasculature: There is moderate atherosclerotic calcification of the abdominal aorta with extension into the iliac arteries. There is mild ectasia of the distal abdominal aorta measuring 3.3 cm. Lymph nodes: See "Gallbladder and bile ducts" finding. Urinary bladder: Unremarkable as visualized. Reproductive: There is mild prostatic enlargement. Calcification of the vas deferens. Bones/joints: Degenerative disc changes of the lumbar spine with facet arthropathy the. Soft tissues: Mild fat filled umbilical hernia. IMPRESSION: 1. Pancreatic head mass with biliary dilatation and 19 mm CBD consistent with malignancy. There is extensive peripancreatic adenopathy encasing the main portal vein with stenosis. 2. Lesion in the hepatic hilum measuring 3.8 x 4.3 x 3.2 cm consistent with metastasis. 3. Somewhat contracted gallbladder with internal layering sludge and probable faint stones with prominent pericholecystic fluid or wall edema. 4. Bibasilar bullous change in the lungs. 5. Colonic diverticulosis without diverticulitis. 6. Mild prostatic enlargement. 7. There is calcification of the vas deferens consistent with diabetes. COMMENTS: Consistent with the [employer]'s Incidental Findings Committee white paper (J Am Ariella Radiol 2018): Any incidental renal lesion less than 1 cm or classified as too small to characterize, or any incidental cystic renal lesion characterized as simple-appearing, is likely benign. No follow-up imaging is recommended for these lesions per consensus recommendations based on imaging criteria. Electronically signed by: Lv Webber On 12/05/2020 02:36:59 AM
[2020-12-05 04:42] LABS: AMPHETAMINES LEVEL URINE NEGATIVE (NEGATIVE); BARBITURATES URINE NEGATIVE (NEGATIVE); BENZODIAZEPINES URINE NEGATIVE (NEGATIVE); CANNABINOIDS URINE POSITIVE (NEGATIVE); COCAINE METABOLITE URINE NEGATIVE (NEGATIVE); METHADONE URINE NEGATIVE (NEGATIVE); OPIATES URINE NEGATIVE (NEGATIVE); PHENCYCLIDINE URINE NEGATIVE (NEGATIVE)
[2020-12-05 06:33] VITALS: BP 122/80
--- NOTE | 2020-12-06 05:41 | ECGEPIP ---
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
== END 2020-12-05 06:39 | disposition short-term general hospital (02) ==
LOC: M ED 22:55
DX: K86.9 Disease of pancreas, unspecified (principal); K83.09 Other cholangitis; K80.80 Other cholelithiasis without obstruction; K44.9 Diaphragmatic hernia without obstruction or gangrene; M79.10 Myalgia, unspecified site; I10 Essential (primary) hypertension; Z88.8 Allergy status to other drugs, medicaments and biological substances; Z87.891 Personal history of nicotine dependence
CPT/HCPCS: 71045; 71260; 74177; 76705; 80048; 80076; 80307; 81001; 82077; 82140; 82550; 82553; 83605; 83690; 84484; 85025; 85610; 85730; 87040; 87086; 87798; 93005; 93041; 96365; 99284; J2543; Q9967

== ENCOUNTER 2020-12-11 05:55 | Inpatient (IN) | payer OTHER ==
[2020-12-11] VITALS (14 sets, daily range): BP systolic 105–132; BP diastolic 58–78
[~2020-12-11] VITALS: Ht 167.6 cm; Wt 70.4 kg
--- OUTSIDE RECORDS SUMMARY | 2020-12-11 06:08 | CCD ---
Author Author [facility] Address Unknown Phone Unavailable Support Name Relationship Address Phone DISABLED Next Of Kin Unknown Unavailable UN Next Of Kin Unknown Unavailable SHELTON PORTER Next Of Kin [address] [place] [address] Re-disclosure Warning The records that [...] is protected by Article 27-F of the [facility] Public Health law. If you continue you may have access to information: Regarding HIV / AIDS; Provided by facilities licensed or operated by the [facility] Office of Mental Health; or Provided by the [facility] Office for People With Developmental Disabilities. If such information is present, then the following [facility] mandated warning applies: This information has been [...] law may result in a fine or alf sentence or both. A general authorization for the release of medical or other information is NOT sufficient authorization for further disc losure. Medications No Information Insurance Providers Payer name Policy type / Coverage type Policy ID Covered libertarian ID Covered libertarian's relationship to maya Policy Maya Plan Information 'S ADMINISTRATION [id number] SP [id number] [employer] [place] [id number] SP [id number] [place]/136[place] [id number] SP [id number] MEDICAID [id number] SP [id number] Problems, Conditions, and Diagnoses No Information Surgeries/Procedures No Information Results ID Date Data Source [id number] 12/05/2020 12:08:00 PM EDT [facility] Name Value Range Interpretation Code Description Data Lilli rce(s) Supporting Document(s) Microorganism or agent identified in Unspecified speci men Negative for SARS-CoV-2, Influenza A and B virus RNA. [facility] This lab was ordered by [facility] and reported by Department of Pathology and Laboratory Medicine at [facility]. ID Date Data Source [id number] 12/05/2020 12:00:00 AM EDT [facility] Name Value Range Interpretation Code Description Data Lilli rce(s) Supporting Document(s) SARS-CoV-2 (COVID 19) NEGATIVE - SARS-CoV-2 (COVID19) [facility] This lab was ordered by [facility] a nd reported by [facility]. Procedure Social History No Information
[2020-12-11] MEDS ORDERED: NS 1,000 ML IV ONE (06:25)
--- OUTSIDE RECORDS SUMMARY | 2020-12-11 06:46 | CCD ---
Author Author [facility] Address Unknown Phone Unavailable Support Name Relationship Address Phone DISABLED Next Of Kin Unknown Unavailable UN Next Of Kin Unknown Unavailable SHELTON PORTER Next Of Kin [address] [place] [address] Re-disclosure Warning The records that [...] is protected by Article 27-F of the [facility] Public Health law. If you continue you may have access to information: Regarding HIV / AIDS; Provided by facilities licensed or operated by the [facility] Office of Mental Health; or Provided by the [facility] Office for People With Developmental Disabilities. If such information is present, then the following [facility] mandated warning applies: This information has been [...] law may result in a fine or retirement sentence or both. A general authorization for the release of medical or other information is NOT sufficient authorization for further disc losure. Medications No Information Insurance Providers Payer name Policy type / Coverage type Policy ID Covered green party ID Covered green party's relationship to maya Policy Maya Plan Information 'S ADMINISTRATION [id number] SP [id number] [employer] [place] [id number] SP [id number] [place] [id number] SP [id number] MEDICAID [id number] SP [id number] Problems, Conditions, and Diagnoses No Information Surgeries/Procedures No Information Results ID Date Data Source [id number] 12/05/2020 12:08:00 PM EDT [facility] Name Value Range Interpretation Code Description Data Lilli rce(s) Supporting Document(s) Microorganism or agent identified in Unspecified speci men Negative for SARS-CoV-2, Influenza A and B virus RNA. [facility] This lab was ordered by [facility] and reported by Department of Pathology and Laboratory Medicine at [facility]. ID Date Data Source [id number] 12/05/2020 12:00:00 AM EDT [facility] Name Value Range Interpretation Code Description Data Lilli rce(s) Supporting Document(s) SARS-CoV-2 (COVID 19) NEGATIVE - [facility]COVID19) [facility] was ordered by [facility] a nd reported by [facility]. Procedure Social History No Information
[2020-12-11 07:04] LABS: HEMATOCRIT 26.7 % (42.0-52.0); HEMOGLOBIN 8.7 g/dl (13.5-17.5); MEAN CORPUSCULAR HEMOGLOBIN 31.5 pg (27.0-33.0); MEAN CORPUSCULAR HGB CONC 32.6 g/dl (32.0-36.5); MEAN CORPUSCULAR VOLUME 96.7 fl (80.0-96.0); PLATELET COUNT, AUTOMATED 381 10^3/uL (150-450); RED BLOOD COUNT 2.76 10^6/uL (4.30-6.10); WHITE BLOOD COUNT 13.5 10^3/uL (4.0-10.0)
[2020-12-11] MEDS: METOPROLOL 5 MG/5 ML VIAL IV SCH ×3 (07:12→07:49)
[2020-12-11 07:27] LABS: ALBUMIN 1.9 GM/DL (3.2-5.2); ALT/SGPT 143 U/L (12-78); BILIRUBIN,DIRECT 5.9 MG/DL (0.0-0.2); BLOOD UREA NITROGEN 10 MG/DL (7-18); CALCIUM LEVEL 8.3 MG/DL (8.8-10.2); CARBON DIOXIDE LEVEL 23 MEQ/L (21-32); CHLORIDE LEVEL 103 MEQ/L (98-107); CK-MB VALUE MASS 1.5 NG/ML (<3.6); CPK CREATINE PHOSPHOKINASE 32 U/L (39-308); CREATININE FOR GFR 0.54 MG/DL (0.70-1.30); ETHYL ALCOHOL (ETHANOL) 0.004 % (0.000-0.010); GLOMERULAR FILTRATION RATE > 60.0 (>42); GLUCOSE, FASTING 129 MG/DL (70-100); LIPASE 245 U/L (73-393); MB/CK RELATIVE INDEX 4.69 (< OR =4); POTASSIUM SERUM 3.9 MEQ/L (3.5-5.1); SODIUM LEVEL 136 MEQ/L (136-145); TOTAL PROTEIN 5.7 GM/DL (6.4-8.2); TROPONIN I 0.58 NG/ML (< 0.10)
[2020-12-11] MEDS ORDERED: METOPROLOL TART 25 MG TABLET PO ONE (07:30)
[2020-12-11 07:43] LABS: NT-PRO BNP 12149 PG/ML (<125)
[2020-12-11 08:16] LABS: INR 0.99; PROTHROMBIN TIME 13.5 SECONDS (12.7-14.5)
[2020-12-11 08:17] LABS: PARTIAL THROMBOPLASTIN TIME 28.6 SECONDS (25.9-37.0)
[2020-12-11] MEDS ORDERED: ISOVUE-370 76% 100ML VIAL As Ordered ONE (08:17)
--- NOTE | 2020-12-11 08:18 | REP ---
INDICATION: sob. COMPARISON: CT 12/05/2020, AP CXR 12/04/2020. TECHNIQUE: AP portable seated FINDINGS: Lungs are hyperinflated with some flattened diaphragms. Emphysematous changes in the mid and upper lung zones. There is no pleural effusion, acute infiltrate or parenchymal mass. The heart, mediastinal hilar contours are unchanged. There is some pulmonary artery hypertension suggested likely on the basis of COPD with prominent central pulmonary arteries. The aorta is mildly tortuous and without aneurysm. Some degenerative changes noted in the spine and shoulders. No free air under the diaphragm. IMPRESSION: 1. COPD and some pulmonary artery hypertension suggested. No cardiomegaly, edema, effusion or acute infiltrate. 2. Mild tortuosity of the aorta without aneurysm. 3. Degenerative changes spine and shoulders. 4. No change from CT 6 days ago. <Electronically signed by Bari Shabazz > 12/11/20 0809
[2020-12-11 08:29] LABS: RSV AMPLIFICATION NEGATIVE (NEGATIVE)
[2020-12-11 08:32] LABS: ATYPICAL LYMPH 1 % (0-5); EOSINOPHILS 1 % (0-3); LYMPHOCYTES 10 % (16-44); MONOCYTES 8 % (0-5); MYELOCYTES 1 % (0-0); NEUTROPHILS 77 % (28-66)
[2020-12-11 08:33] LABS: ANISOCYTOSIS 1+; HYPOCHROMASIA 1+; PLATELET ESTIMATE NORMAL (NORMAL)
--- NOTE | 2020-12-11 08:51 | REP ---
INDICATION: rapid a fib; sob; recent adm and biopsy. COMPARISON: 12/05/2020 CT, AP CXR 12/11/2020 TECHNIQUE: CT angiogram chest performed following the intravenous administration of 100 cc of Isovue 370. Sagittal and coronal reconstruction images are performed. FINDINGS: Lungs: There is a trace pleural effusion in the deep right sulcus not visible radiographically. Lungs well inflated. There is no dense consolidation, pulmonary nodule or parenchymal mass. No pleural thickening, pleural plaques or any significant interstitial change. Underlying COPD. Mediastinum: No adenopathy. Pulmonary arteries: No evidence of pulmonary embolism. Deepali: No adenopathy. Axilla: No adenopathy. Pleura: Trace right effusion but no pleural plaque, calcification or pleural based mass.. Heart: Heart size not grossly enlarged. There is no pericardial thickening or effusion. Coronary artery calcifications are seen.. Thoracic aorta: Calcified arch and descending portion without aneurysm or dissection. Upper abdominal structures: Large mass in the pancreatic head region with a new indwelling common duct biliary stent into the right lobe of the liver. Small amounts of air in the biliary tree related to recent insertion of that drain. Visualized osseous structures: Degenerative changes in the spine, bony thorax without acute finding. IMPRESSION: No CT evidence of pulmonary embolism. There is a new small right pleural effusion in the deep sulcus, not visible radiographically. Lung doan without infiltrate or parenchymal mass. Some underlying COPD. Tortuous calcified aorta without aneurysm. Upper abdomen shows a new internal biliary stent through the common duct into the liver with small amounts of air in the biliary tree related to the recent insertion. <Electronically signed by Bari Shabazz > 12/11/20 [id number]
--- NOTE | 2020-12-11 09:06 | REP ---
INDICATION: rapid a fib; sob; recent adm and biopsy. COMPARISON: 12/05/2020 TECHNIQUE: Bolus 100 mL Isovue 370 scanning through the abdomen pelvis with coronal and sagittal reconstructions. FINDINGS: CT abdomen: Lung bases are clear the heart is not enlarged. There is no pericardial thickening or effusion. Some coronary artery calcifications are seen. There is a small hiatal hernia. The liver is not enlarged. Large mass at the head of the pancreas extending into the body. A new internal biliary stent through the common duct into the right lobe of the liver is present. There is air in the biliary tree related to that insertion. Do not see parenchymal mass or ascites about the liver. Hyperdense bile representing contrast from biliary stent procedure. Dilated biliary tree is seen. Common bile duct diameter is 16 mm in the zeenat hepatis, it was 19 mm prior to placement of the stent. Bulky adenopathy in the aortocaval, peripancreatic region and a large metastatic focus in the spleen near the hilum. All of this is unchanged. Adenopathy surrounds the right renal artery and in the aortocaval space. Adrenal glands unchanged. The kidneys show few small hypodense nodules likely cysts. However lower pole on the left shows a new area of poor enhancement that may reflect poor perfusion. No hydronephrosis. Diverticulosis of the colon seen with new patchy pericolonic infiltration of fat suggesting some diverticulitis or a duodenitis the right upper quadrant adjacent to the hepatic flexure and duodenum. No other similar pericolonic fatty infiltration. Small bowel loops without dilatation or air-fluid levels. Pancreatic body and tail are unremarkable. The aorta shows heavy atherosclerotic calcification without aneurysm. Are periaortic nodes lateral to the aorta at level of takeoff of the left renal artery. There are few other scattered mesenteric peripancreatic nodes. Some bili cul hernia with only omental fat within it. No bowel herniation. Bones are unchanged. Extensive degenerative disc disease with vacuum phenomenon, discogenic sclerosis in the lumbar spine and no compression fractures. CT pelvis. The bladder without mass or wall thickening. There is prostate indentation at the bladder base. No stone or debris within the bladder. No ventral or inguinal hernia. Degenerative changes of the hips and pelvis unchanged and some calcifications in iliac vessels and the vas deferens stable. Small bowel loops and colon in the deep pelvis unremarkable and unchanged. No inguinal hernia or adenopathy and no ventral pelvic wall hernia. IMPRESSION: 1. Interval placement of internal biliary stent in the common duct to the right lobe of the liver with the decrease in size of the common duct in the zeenat hepatis from down to 1916 mm and with a scattered small amounts of air in the biliary tree. Degree of intrahepatic biliary dilatation not changed. 2. Zone of pericolonic inflammatory changes the adjacent to the hepatic flexure and duodenum in the right upper quadrant that may reflect some diverticulitis and/or duodenitis. There is no intra-abdominal or pelvic free air to suggest perforation nor abscess. 3. Large bulky mass the pancreatic head region with extensive peripancreatic, aortocaval, periaortic and other mesenteric nodes as well as a prominent metastatic lesion in the spleen near the hilus. 4. Gallbladder filled with contrast from biliary stent procedure. 5. Zone of poor enhancement lower pole left kidney, new from previous study. This could be focal ischemia or edema from pyelonephritis. <Electronically signed by Bari Shabazz > 12/11/20 [id number]
[2020-12-11] MEDS ORDERED: PANTOPRAZOLE 40MG VIAL (C9113 PER 1) IV ONE (09:30)
[2020-12-11] MEDS ORDERED: PIPERACILLIN/TAZOBACTAM SOD 4.5 GM in D5W MINI-BAG PLUS 50 ML IV ONE (10:00)
[2020-12-11 10:28] LABS: MYOGLOBIN 70 NG/ML (16-116)
[2020-12-11] MEDS ORDERED: HOME MED LIST COMPLETE! XX SCH (10:30)
--- OUTSIDE RECORDS SUMMARY | 2020-12-11 11:03 | CCD ---
Author Author [facility] Address Unknown Phone Unavailable Support Name Relationship Address Phone DISABLED Next Of Kin Unknown Unavailable UN Next Of Kin Unknown Unavailable SHELTON PORTER Next Of Kin [address] [place] [address] Re-disclosure Warning The records that [...] is protected by Article 27-F of the [facility] Public Health law. If you continue you may have access to information: Regarding HIV / AIDS; Provided by facilities licensed or operated by the [facility] Office of Mental Health; or Provided by the [facility] Office for People With Developmental Disabilities. If such information is present, then the following [facility] mandated warning applies: This information has [...] law may result in a fine or [place] health care facility sentence or both. A general authorization for the release of medical or other information is NOT sufficient authorization for further disc losure. Medications No Information Insurance Providers Payer name Policy type / Coverage type Policy ID Covered alliance party ID Covered alliance party's relationship to maya Policy Maya Plan Information 'S ADMINISTRATION [id number] SP [id number] [employer] [place] CC[place] [id number] SP [id number] [id number] SP [id number] MEDICAID [id number] SP [id number] Problems, Conditions, and Diagnoses No Information Surgeries/Procedures No Information Results ID Date Data Source [id number] 12/05/2020 12:08:00 PM EDT [facility] Name Value Range Interpretation Code Description Data Lilli rce(s) Supporting Document(s) Microorganism or agent identified in Unspecified speci men Negative for SARS-CoV-2, Influenza A and B virus RNA. [facility] This lab was ordered by [facility] and reported by Department of Pathology and Laboratory Medicine at [facility]. ID Date Data Source [id number] 12/05/2020 12:00:00 AM EDT [facility] Name Value Range Interpretation Code Description Data Lilli rce(s) Supporting Document(s) SARS-CoV-2 (COVID 19) NEGATIVE - SARS-CoV-2 (COVID19) [facility] This lab was ordered by [facility] a nd reported by [facility]. Procedure Social History No Information
[2020-12-11] MEDS ORDERED: LORazepam 2 MG TAB PO PRN (11:20)
[2020-12-11] MEDS: FOLIC ACID 1 MG TAB PO SCH (11:45)
[2020-12-11] MEDS: MULTIVITAMINS/MINERALS THERAP 1 TAB PO SCH (11:45)
[2020-12-11] MEDS: THIAMINE 100 MG TAB PO SCH ×2 (11:45→20:35)
--- NOTE | 2020-12-11 11:47 | REP ---
INDICATION: swelling r/o dvt. TECHNIQUE: Multiple ultrasonographic images of the deep venous structures of the bilateral thighs were obtained from the level of the common femoral vein to the popliteal vein in the longitudinal and transverse scan planes along with Doppler interrogation and color flow Doppler imaging. Imaging in the proximal calves for posterior tibial and peroneal veins also performed with compression ultrasound. FINDINGS: There is no abnormal echogenic material seen within any of the visualized deep venous structures that would suggest acute thrombosis. Coaptation is unremarkable throughout. Doppler interrogation shows an expected response to respiratory variability and augmentation. The color flow Doppler images show what appears to be a normal vascular pattern throughout. Compression of the bilateral posterior tibial and peroneal veins is observed. IMPRESSION: There is no ultrasonographic evidence of deep venous thrombosis involving any of the visualized deep venous structures of the bilateral thighs as described above. In the proximal calves the bilateral posterior tibial and peroneal veins compressed. Accredited by the [employer] in Vascular Peripheral Ultrasound. <Electronically signed by Bari Shabazz > 12/11/20 [id number]
--- NOTE | 2020-12-11 12:18 | HPEPDOC ---
[facility] Medical History & Physical Date of Admission Dec 11, 2020 Date of Service: Dec 11, 2020 Attending Physician: MONISHA CAMERON DO History and Physical CHIEF COMPLAINT: Shortness of breath HISTORY OF PRESENT ILLNESS: Juan Caceres is a 70-year-old male who presented to the hospital early this morning due to shortness of breath and racing heart. He states that his symptoms began yesterday while he was trying to find a place to sleep at night. He had been trying to book a hotel room but did not have a credit card to keep on the account. He states he had gone to the [employer] for money and noted when he was exerting himself more he seemed to get short of breath. He was not able to book his own hotel room due to lack of credit card, but said that someone at the hotel (Daryl Baez) offered to let him stay in his room and the patient took him up on this offer. The patient notes that the man he was staying with was quite talkative and loud all night long so he did not get any sleep. Patient states this morning he was continuing to feel unwell and decided to come to the emergency room. The patient has a recent history of painless jaundice for which she was evaluated in this ER on December 04, 2020 and found to have obstruction secondary to pancreatic mass. The patient was transferred that day to [facility] and admitted to their facility for biliary stent placement and pancreatic mass biopsy. The results of his biopsy are pending, but the patient appears to have metastatic intra-abdominal disease on imaging, so it is suspected that he has a diagnosis of pancreatic cancer. In the ED, the patient was noted to be in atrial fibrillation with RVR. He was treated with 2 doses of IV metoprolol tartrate 5 mg IV and 1 dose of 25 mg p.o. metoprolol tartrate. He was also given 1 L fluid bolus. He is continuously monitored on telemetry and is noted to currently be in sinus rhythm. Lab work also revealed a low hemoglobin level with positive stool occult. The patient's last hemoglobin level at this facility was 12.7 and today it is down to 8.7. 2 units of PRBCs were ordered for transfusion. The patient was also given a dose of Zosyn IV for concern of intra-abdominal infection with elevated WBC count. UA is not suggestive of infection. He was also noted to have elevated LFTs which had improved from his prior visit. He is found to have elevated troponin level In the ED, the patient also indicated he would like to be DNR/DNI status and would not like to be transferred for any potential coronary intervention despite his elevated troponin level. PAST MEDICAL HISTORY: Hypertension, not currently on medication History of bulging disks in the spine Gastric ulcers Episode of delusional disorder admitted to [facility] in 2014 Alcohol abuse PAST SURGICAL HISTORY: Tonsillectomy Right knee repair Biliary stent placement (plastic), [facility], December 2020 SOCIAL HISTORY: Homeless, was staying in a hotel Prior medical marijuana use, reports no use in the past month Current smoker, smokes 3 to 4 cigarettes a day for approximately 50 years Reports 6-8 beers daily for a number of years, states he has not had a drink since his admission to [facility] December 04, 2020 FAMILY HISTORY: Mostly unknown, patient is adopted. States his brother has cerebral palsy. ALLERGIES: Please see below. REVIEW OF SYSTEMS: CONSTITUTIONAL: Denies fevers, chills, night sweats, fatigue, unexpected change in weight. HEENT: Denies change in vision, change in hearing. CARDIOVASCULAR: Denies chest pain, lightheadedness. RESPIRATORY: Denies dyspnea, cough, wheezing. GASTROINTESTINAL: Denies nausea, vomiting, abdominal pain, diarrhea, constipation, blood in stool. GENITOURINARY: Denies dysuria, urinary frequency, urinary urgency. SKIN: Reports yellow skin for approximately 2 weeks now. MUSCULOSKELETAL: Reports chronic back pain and left shoulder pain. NEUROLOGICAL: Denies headache, dizziness, weakness. PSYCHIATRIC: Denies change in mood. HOME MEDICATIONS: Please see below. PHYSICAL EXAMINATION: VITAL SIGNS: See below GENERAL: Alert, comfortable, in no acute distress, sitting up on the ED stretcher HEENT: Normocephalic, atraumatic, PERRLA, EOMI, moist mucous membranes. Sclera appear icteric. NECK: Supple, trachea midline, no lymphadenopathy CARDIOVASCULAR: Regular rate and rhythm, normal S1 and S2. No murmurs, rubs, or gallops RESPIRATORY: Clear to auscultation bilaterally with equal air entry bilaterally. No wheezing, rhonchi, or rales. ABDOMEN: Soft, nontender, nondistended, bowel sounds present, no hepatosplenomegaly appreciated. There is an umbilical hernia which is easily reducible and nontender. No CVA tenderness bilaterally. EXTREMITIES: 1+ pitting edema in bilateral lower extremities extending up to the mid calf. Pulses 2+/4 in bilateral upper and lower extremities SKIN: Jaundiced. NEUROLOGIC: Alert and oriented x3 to person, place and time. No focal deficits appreciated PSYCHIATRIC: Mood and affect appropriate LABORATORY DATA: See below. IMAGING: CXR 1. COPD and some pulmonary artery hypertension suggested. No cardiomegaly, edema, effusion or acute infiltrate. 2. Mild tortuosity of the aorta without aneurysm. 3. Degenerative changes spine and shoulders. 4. No change from CT [address] abdomen/pelvis 1. Interval placement of internal biliary stent in the common duct to the right lobe of the liver with the decrease in size of the common duct in the zeenat hepatis from down to 1916 mm and with a scattered small amounts of air in the biliary tree. Degree of intrahepatic biliary dilatation not changed. 2. Zone of pericolonic inflammatory changes the adjacent to the hepatic flexure and duodenum in the right upper quadrant that may reflect some diverticulitis and/or duodenitis. There is no intra-abdominal or pelvic free air to suggest perforation nor abscess. 3. Large bulky mass the pancreatic head region with extensive peripancreatic, aortocaval, periaortic and other mesenteric nodes as well as a prominent metastatic lesion in the spleen near the hilus. 4. Gallbladder filled with contrast from biliary stent procedure. 5. Zone of poor enhancement lower pole left kidney, new from previous study. This could be focal ischemia or edema from pyelonephritis. CTA chest No CT evidence of pulmonary embolism. There is a new small right pleural effusion in the deep sulcus, not visible radiographically. Lung doan without infiltrate or parenchymal mass. Some underlying COPD. Tortuous calcified aorta without aneurysm. Upper abdomen shows a new internal biliary stent through the common duct into the liver with small amounts of air in the biliary tree related to the recent insertion. MICROBIOLOGY: Please see below. ASSESSMENT: 70-year-old male with past medical history of hypertension, gastric ulcers, alcohol abuse, and recent admission to [facility] for biliary obstruction secondary to pancreatic mass which is suspected to be malignant who presented to the hospital today with shortness of breath, found to be in atrial fibrillation with RVR and have possible acute anemia who was admitted for further management and evaluation. PLAN: #Atrial fibrillation with RVR, paroxysmal Status post IV and p.o. metoprolol in the ED, currently in sinus rhythm with normal rate No further rate control medications to be given at this time Continue to monitor on telemetry for further episodes Hold off on anticoagulation due to anemia Echocardiogram ordered Troponin elevated, likely demand ischemia, trend every 6 hours. Patient declines any interventional cardiology treatment and therefore was not transferred to a facility with cardiac Insurance Billing Specialist. Work-up for infectious cause has been somewhat unrevealing, other than elevated WBC count and CT abdomen concerning for possible area of low-enhancement in the kidney, concern for pyelonephritis per radiologist. However, the patient's UA is negative. Blood cultures x2 pending. Patient does not have any CVA tenderness. Status post 1 dose of IV Zosyn in the ED. We will hold off on further antibiotics for now. #Pancreatic mass with biliary obstruction Patient currently has a plastic stent in place LFTs trending down from prior ER visit Continue to monitor LFTs Follow-up biopsy results from [facility] and discuss with hematology once available #Acute, possibly symptomatic anemia Status post 2 units PRBCs ordered from the ED provider Patient is consented for transfusions if indicated Stool occult positive, plan as below Trend CBC every 6 hours #GI bleed, possible acute versus chronic Stool occult positive in the ED Treatment for anemia as detailed above Continue to monitor CBC every 6 hours Clear liquid diet IV Protonix twice daily. Oral Carafate 4 times daily. #Lower extremity swelling, bilateral Duplex ultrasound bilateral lower extremities to further evaluate rule out DVT Echocardiogram ordered to evaluate for heart failure #Alcohol abuse Patient denies any recent alcohol use, unclear if this is a reliable history Alcohol level 0.004 on admission. Check UDS CIWA protocol with p.o. Ativan as needed. Supplement thiamine, folic acid, multivitamin LFTs not supportive of alcoholic hepatitis as ALT greater than AST at this time. Maddrey's discriminant function score is 7.0, indicating good prognosis without any benefit from glucocorticoid therapy at this time. #History of hypertension No home medications currently. Monitor blood pressure while inpatient. DVT prophylaxis: Teds and sequentials. Avoid medical prophylaxis due to acute anemia/possible GI bleed CODE STATUS: DNR/DNI Disposition: Admitted inpatient to PCU pending clinical improved Vital Signs Vital Signs Date Time Temp Pulse Resp B/P (MAP) Pulse Ox O2 Delivery O2 Flow Rate FiO2 12/11/20 10:30 97.5 84 18 105/65 (78) 12/11/20 10:30 100 Room Air Laboratory Data Labs 24H Laboratory Tests 2 12/11/20 06:34: Immature Granulocyte % (Auto) , Neutrophils (%) (Auto) , Nucleated Red Blood Cells % (auto) 0.6H, Neutrophils 77H, Band Neutrophils 2, Lymphocytes (Manual) 10L, Monocytes (Manual) 8H, Eosinophils (Manual) 1, Myelocytes 1H, Atypical Lymphocytes 1, Hypochromasia 1+, Anisocytosis 1+, Macrocytosis 1+, Platelet Estimate NORMAL, Prothrombin Time 13.5, Prothromb Time International Ratio 0.99, Activated Partial Thromboplast Time 28.6, Anion Gap 10, Glomerular Filtration Rate > 60.0, Lactic Acid Level 1.3, Calcium Level 8.3L, Total Bilirubin 7.0H, Direct Bilirubin 5.9H, Aspartate Amino Transf (AST/SGOT) 104H, Alanine Aminotransferase (ALT/SGPT) 143H, Alkaline Phosphatase 448H, Total Creatine Kinase 32L, Creatine Kinase MB 1.5, Creatine Kinase MB Relative Index 4.69H, Myoglobin 70, Troponin I 0.58H, IC-Mwh-U-Type Natriuretic Peptide 12913I, Total Protein 5.7L, Albumin 1.9L, Albumin/Globulin Ratio 0.5, Lipase 245, Ethyl Alcohol Level 0.004 12/11/20 06:50: Ammonia < 10 12/11/20 07:33: POC Glucose (Misc Panel) 132H, POC Sodium (Misc Panel) 136, POC Potassium (Misc Panel) 4.0, POC Chloride (Misc Panel) 99, POC Total CO2 (Misc Panel) 26.0, POC Blood Urea Nitrogen (Misc Panel 9, POC Ionized Calcium (Misc Panel) 4.6, POC Creatinine (Misc Panel) 0.5L, POC Hematocrit (Misc Panel) 28.0L, Coronavirus (COVID-19)(PCR) NEGATIVE, Influenza Type A (RT-PCR) NEGATIVE, Influenza Type B (RT-PCR) NEGATIVE, Respiratory Syncytial Virus (PCR) NEGATIVE 12/11/20 09:34: Urine Color JOSELINE, Urine Appearance CLEAR, Urine pH 5.0, Urine Specific [place] S3, Urine Protein 1+H, Urine Glucose (UA) NEGATIVE, Urine Ketones NEGATIVE, Urine Blood NEGATIVE, Urine Nitrite NEGATIVE, Urine Bilirubin 1+H, Urine Urobilinogen 4.0H, Urine Leukocyte Esterase NEGATIVE, Urine WBC (Auto) 2, Urine RBC (Auto) 3, Urine Hyaline Casts (Auto) 0, Urine Bacteria (Auto) 1+H, Urine Squamous Epithelial Cells 0, Urine Mucus (Auto) SMALL, Urine Sperm (Auto) CBC/BMP Laboratory Tests 12/11/20 06:34 Microbiology Microbiology 12/11/20 Blood Culture, Received Pending 12/11/20 Blood Culture, Received Pending Home Medications No Active Prescriptions or Reported Meds Allergies Coded Allergies: prednisone (Verified Allergy, Severe, suicidal ideation w/steroids, 12/05/20) GME ATTESTATION GME ATTESTATION My faculty preceptor for this patient encounter was physically present during the encounter and was fully available. All aspects of the patient interview, examination, medical decision making process, and medical care plan development were reviewed and approved by the faculty preceptor. The faculty preceptor is aware and concurs with the plan as stated in the body of this note and will attest to such by his/her cosignature. ATTENDING NOTE I performed a history and physical examination of the patient and discussed his management with the resident. I reviewed the residents note and agree with the documented findings and plan of care. ROMARIO MONTGOMERY D.O. Dec 11, 2020 12:18 MAR,MONISHA Naranjo DO Dec 11, 2020 15:24
--- NOTE | 2020-12-11 12:48 | ECGEPIP ---
[facility] - ED Test Date: 2020-12-11 Pat Name: LUIZA PORTER Department: Room: - Gender: Male Cupola Patcher: REJI : 1950 Requested By: SANAM Mandujano Order Number: [id number] Reading MD: Vinh Sweeney Measurements Intervals [place] Rate: 172 P: AL: QRS: 34 QRSD: 82 T: -6 QT: 274 QTc: 463 Interpretive Statements Critical Test Result: High HR Atrial fibrillation with rapid ventricular response Septal infarct , age undetermined Nonspecific ST T wave changes Delayed R wave progression cw 12/05/20 rate increased rhythm change Nonspecific ST T wave changes Electronically Signed on 12-11-2020 12:47:47 EDT by Vinh Sweeney
[2020-12-11] MEDS: SUCRALFATE 1 GM TAB PO SCH ×3 (12:57→20:34)
[2020-12-11 13:15] LABS: AMPHETAMINES LEVEL URINE NEGATIVE (NEGATIVE); BARBITURATES URINE NEGATIVE (NEGATIVE); BENZODIAZEPINES URINE NEGATIVE (NEGATIVE); CANNABINOIDS URINE POSITIVE (NEGATIVE); COCAINE METABOLITE URINE NEGATIVE (NEGATIVE); METHADONE URINE NEGATIVE (NEGATIVE); OPIATES URINE NEGATIVE (NEGATIVE); PHENCYCLIDINE URINE NEGATIVE (NEGATIVE)
[2020-12-11 13:16] LABS: HEMATOCRIT 34.8 % (42.0-52.0); MEAN CORPUSCULAR HEMOGLOBIN 29.7 pg (27.0-33.0); MEAN CORPUSCULAR HGB CONC 31.3 g/dl (32.0-36.5); MEAN CORPUSCULAR VOLUME 94.8 fl (80.0-96.0); PLATELET COUNT, AUTOMATED 343 10^3/uL (150-450); RED BLOOD COUNT 3.67 10^6/uL (4.30-6.10)
[2020-12-11 13:43] LABS: HEMOGLOBIN 10.9 g/dl (13.5-17.5)
[2020-12-11 19:36] LABS: HEMATOCRIT 33.8 % (42.0-52.0); HEMOGLOBIN 10.8 g/dl (13.5-17.5); MEAN CORPUSCULAR HEMOGLOBIN 29.5 pg (27.0-33.0); MEAN CORPUSCULAR VOLUME 92.3 fl (80.0-96.0); PLATELET COUNT, AUTOMATED 317 10^3/uL (150-450); RED BLOOD COUNT 3.66 10^6/uL (4.30-6.10); WHITE BLOOD COUNT 12.1 10^3/uL (4.0-10.0)
[2020-12-11] MEDS: PANTOPRAZOLE 40MG VIAL (C9113 PER 1) IV SCH (20:34)
[2020-12-11] MEDS: SENOKOT S TAB PO PRN (20:35)
[2020-12-11] MEDS: RAMELTEON 8 MG TAB (ROZEREM) PO PRN (20:35)
[2020-12-12 01:49] LABS: HEMATOCRIT 33.4 % (42.0-52.0); HEMOGLOBIN 10.7 g/dl (13.5-17.5); MEAN CORPUSCULAR HEMOGLOBIN 29.6 pg (27.0-33.0); MEAN CORPUSCULAR VOLUME 92.3 fl (80.0-96.0); PLATELET COUNT, AUTOMATED 293 10^3/uL (150-450); RED BLOOD COUNT 3.62 10^6/uL (4.30-6.10); WHITE BLOOD COUNT 11.1 10^3/uL (4.0-10.0)
[2020-12-12 06:15] LABS: HEMATOCRIT 34.2 % (42.0-52.0); HEMOGLOBIN 11.1 g/dl (13.5-17.5); MEAN CORPUSCULAR HEMOGLOBIN 29.8 pg (27.0-33.0); MEAN CORPUSCULAR HGB CONC 32.5 g/dl (32.0-36.5); MEAN CORPUSCULAR VOLUME 91.9 fl (80.0-96.0); PLATELET COUNT, AUTOMATED 288 10^3/uL (150-450); RED BLOOD COUNT 3.72 10^6/uL (4.30-6.10); WHITE BLOOD COUNT 10.4 10^3/uL (4.0-10.0)
[2020-12-12 06:44] LABS: ALBUMIN 1.9 GM/DL (3.2-5.2); ALT/SGPT 130 U/L (12-78); BILIRUBIN,TOTAL 6.2 MG/DL (0.2-1.0); BLOOD UREA NITROGEN 7 MG/DL (7-18); CALCIUM LEVEL 8.2 MG/DL (8.8-10.2); CARBON DIOXIDE LEVEL 23 MEQ/L (21-32); CHLORIDE LEVEL 104 MEQ/L (98-107); CREATININE FOR GFR 0.51 MG/DL (0.70-1.30); GLOMERULAR FILTRATION RATE > 60.0 (>42); GLUCOSE, FASTING 106 MG/DL (70-100); POTASSIUM SERUM 4.1 MEQ/L (3.5-5.1); SODIUM LEVEL 135 MEQ/L (136-145); TOTAL PROTEIN 5.6 GM/DL (6.4-8.2)
[2020-12-12] MEDS ORDERED: FLUBLOK(EGG FREE)(QUAD)INFLUENZA VACC 0.5ML SYRINGE 18YRS & OLDER IM ONE (09:00)
[2020-12-12] MEDS: FOLIC ACID 1 MG TAB PO SCH (09:16)
[2020-12-12] MEDS: THIAMINE 100 MG TAB PO SCH ×2 (09:16→20:52)
[2020-12-12] MEDS: PANTOPRAZOLE 40MG VIAL (C9113 PER 1) IV SCH ×2 (09:16→20:52)
[2020-12-12] MEDS: MULTIVITAMINS/MINERALS THERAP 1 TAB PO SCH (09:16)
[2020-12-12] MEDS: SUCRALFATE 1 GM TAB PO SCH ×4 (09:16→20:52)
--- NOTE | 2020-12-12 13:10 | IPNPDOC ---
Subjective Date Seen The patient was seen on 12/12/20. Subjective Chief Complaint/HPI Mr. Caceres is a 70 year old male who presents with dyspnea. This morning, he denied any chest pain or dyspnea. He denies any chest pain or dyspnea. His hemoglobin remains stable. Objective Physical Examination General Exam: Positive: Alert, Cooperative Eye Exam: Positive: Sclera icteric ENT Exam: Positive: Atraumatic Neck Exam: Positive: Supple Chest Exam: Positive: Clear to auscultation Heart Exam: Positive: Tachycardic, Regular Rhythm Abdomen Exam: Positive: Normal bowel sounds, Soft; Negative: Tenderness Extremity Exam: Positive: Edema Neuro Exam: Positive: Normal Speech Psych Exam: Positive: Mental status NL, Anxiety Assessment /Plan Assessment Mr. Caceres is a 70 year old male who presents with dyspnea. His dyspnea is most likely secondary to afib with RVR and anemia. Hemoglobin responded appropriately to 2u transfusion. Hemoglobin remains stable. Otherwise, heart rate also improved, but still tachycardic. Will add on Lopressor We still have not received records from [place]. Will reach out to heme/onc when we have records. Plan/VTE VTE Prophylaxis Ordered?: Yes Plan 1. Atrial fibrillation with RVR -Started Lopressor -Due to acute symptomatic anemia, will hold off of anticoagulation until hemoglobin stable. CHADs-VASc score of 1 (for age). May only need aspirin 2. Acute anemia -Baseline hemoglobin around 12 -On admission, hemoglobin 8.7. Responded appropriately to 2u pRBC -Continue to monitor H&H -Unable to obtain iron studies and reticulocyte count as he already received blood 3. Pancreatic mass with biliary obstruction -Patient has plastic stent in place -LFT elevated -Request biopsy results from [facility] 4. Alcohol abuse -Maddrey's score 7. No need for steroids at this time -CIWA -Thiamine, Folic acid, and multivitamin 5. DVT ppx -SCD and TEDs Disposition: Pending stability of H&H and biopsy results from [facility] VS, I&O, 24H, Fishbone Vital Signs/I&O Vital Signs Date Time Temp Pulse Resp B/P (MAP) Pulse Ox O2 Delivery O2 Flow Rate FiO2 12/12/20 09:46 97 100 12/12/20 08:00 138/81 (100) 12/12/20 06:46 16 Room Air 12/11/20 13:33 97.5 I&O- Last 24 Hours up to 6 AM 12/12/20 06:00 Intake Total 1850 ml Balance 1850 ml Laboratory Data 24H LABS Laboratory Tests 2 12/11/20 12:58: Nucleated Red Blood Cells % (auto) 0.6H, Troponin I 0.54H 12/11/20 18:40: Nucleated Red Blood Cells % (auto) 0.8H, Troponin I 0.43#H 12/12/20 01:24: Nucleated Red Blood Cells % (auto) 0.5H 12/12/20 05:57: Nucleated Red Blood Cells % (auto) 0.6H, Anion Gap 8, Glomerular Filtration Rate > 60.0, Calcium Level 8.2L, Total Bilirubin 6.2H, Aspartate Amino Transf (AST/SGOT) 81H, Alanine Aminotransferase (ALT/SGPT) 130H, Alkaline Phosphatase 393H, Total Protein 5.6L, Albumin 1.9L, Albumin/Globulin Ratio 0.5 CBC/BMP Laboratory Tests 12/11/20 12:58 12/11/20 18:40 12/12/20 01:24 12/12/20 05:57 Microbiology Microbiology 12/11/20 Blood Culture - Preliminary, Resulted No growth after 24 hours . All specim... 12/11/20 Blood Culture - Preliminary, Resulted No growth after 24 hours . All specim... MONISHA CAMERON DO Dec 12, 2020 13:10
[2020-12-12] MEDS: METOPROLOL TART 25 MG TABLET PO SCH ×2 (13:20→20:52)
[2020-12-12 13:41] LABS: HEMATOCRIT 35.9 % (42.0-52.0); HEMOGLOBIN 11.5 g/dl (13.5-17.5); MEAN CORPUSCULAR HEMOGLOBIN 29.6 pg (27.0-33.0); MEAN CORPUSCULAR VOLUME 92.3 fl (80.0-96.0); PLATELET COUNT, AUTOMATED 301 10^3/uL (150-450); RED BLOOD COUNT 3.89 10^6/uL (4.30-6.10); WHITE BLOOD COUNT 10.9 10^3/uL (4.0-10.0)
[2020-12-12 14:43] VITALS: BP 119/81
[2020-12-12 14:44] VITALS: BP 119/81
--- NOTE | 2020-12-12 14:57 | ECHO ---
ECHOCARDIOGRAM DATE OF PROCEDURE: 12/12/2020 Age: Gender: Height: 66 inches Weight: 183 pounds REFERRING PHYSICIAN: Martha Whaley D.O. INDICATION: Paroxysmal atrial fibrillation. MEASUREMENTS: 2D Measurements: Aortic root 3.5 cm Left atrium 4.7 cm Inferior septum 0.88 cm Posterior wall 1.29 cm? Left ventricle diastole 4.9 cm Left ventricle systole 3.9 cm Inferior vena cava 2.1 cm Doppler Measurements: No aortic regurgitation No aortic stenosis. Aortic valve velocity 86.9 cm/s LVOT velocity 80.2 cm/s LVOT VTI 13.6 cm Very mild mitral regurgitation Mitral E velocity 44.1 cm/s Mitral A velocity 51.3 cm/s Mitral deceleration time 203 msec No tricuspid regurgitation No pulmonic regurgitation Pulmonary acceleration time 180 msec MITRAL ANNULAR TISSUE DOPPLER E prime lateral 5.2 cm/s, E prime septal 3.7 cm/s DESCRIPTION: Rhythm was sinus. This was a moderately technically difficult echocardiogram. This was a 2D, M-mode, color flow Doppler, and pulsed wave Doppler examination including mitral annular tissue Doppler. CONCLUSIONS: 1. Normal left ventricle internal dimensions. Probably normal LV wall thickness. Akinesis of the mid anterior, mid anteroseptal, mid anterolateral, and mid inferolateral segments. Akinesis of the apical segments including the apical cap segment. Hypokinesis of the mid inferior and mid inferolateral LV segments. Normal wall motion and wall thickening of the basal LV segments. Moderately severe reduction of LV systolic function. LVF 35% by visual estimate. Grade 1 left ventricular diastolic dysfunction (relaxation filling pattern). No LV thrombus. 2. Normal left atrial size. 3. No pericardial effusion. 4. Mild mitral annular calcification with very mild mitral regurgitation. 5. Mild aortic valve sclerosis of a 3-cusp aortic valve. 6. Otherwise normal-appearing echocardiogram and Doppler findings.
[2020-12-12 16:00] VITALS: BP 119/81
[2020-12-12 20:00] VITALS: BP 132/80
[2020-12-12] MEDS: RAMELTEON 8 MG TAB (ROZEREM) PO PRN (20:52)
[2020-12-12 22:00] VITALS: BP 128/72
[2020-12-13] VITALS: BP 112/73
[2020-12-13 04:00] VITALS: BP 101/66
[2020-12-13 05:45] LABS: HEMATOCRIT 35.1 % (42.0-52.0); HEMOGLOBIN 11.2 g/dl (13.5-17.5); MEAN CORPUSCULAR HEMOGLOBIN 29.9 pg (27.0-33.0); MEAN CORPUSCULAR HGB CONC 31.9 g/dl (32.0-36.5); MEAN CORPUSCULAR VOLUME 93.6 fl (80.0-96.0); PLATELET COUNT, AUTOMATED 289 10^3/uL (150-450); RED BLOOD COUNT 3.75 10^6/uL (4.30-6.10); WHITE BLOOD COUNT 9.9 10^3/uL (4.0-10.0)
[2020-12-13 06:00] LABS: ALBUMIN 1.9 GM/DL (3.2-5.2); ALT/SGPT 116 U/L (12-78); BILIRUBIN,TOTAL 5.1 MG/DL (0.2-1.0); BLOOD UREA NITROGEN 10 MG/DL (7-18); CALCIUM LEVEL 8.8 MG/DL (8.8-10.2); CARBON DIOXIDE LEVEL 28 MEQ/L (21-32); CHLORIDE LEVEL 100 MEQ/L (98-107); CREATININE FOR GFR 0.68 MG/DL (0.70-1.30); GLOMERULAR FILTRATION RATE > 60.0 (>42); GLUCOSE, FASTING 122 MG/DL (70-100); POTASSIUM SERUM 4.6 MEQ/L (3.5-5.1); SODIUM LEVEL 135 MEQ/L (136-145); TOTAL PROTEIN 5.5 GM/DL (6.4-8.2)
[2020-12-13 08:00] VITALS: BP 142/77
[2020-12-13] MEDS: PANTOPRAZOLE 40MG VIAL (C9113 PER 1) IV SCH ×2 (09:18→20:31)
[2020-12-13] MEDS: MULTIVITAMINS/MINERALS THERAP 1 TAB PO SCH (09:18)
[2020-12-13] MEDS: SUCRALFATE 1 GM TAB PO SCH (09:18)
[2020-12-13] MEDS: FOLIC ACID 1 MG TAB PO SCH (09:19)
[2020-12-13] MEDS: THIAMINE 100 MG TAB PO SCH ×2 (09:19→20:32)
[2020-12-13] MEDS: METOPROLOL TART 25 MG TABLET PO SCH ×2 (09:21→20:32)
[2020-12-13 10:42] VITALS: BP 125/84
--- NOTE | 2020-12-13 10:50 | IPNPDOC ---
Subjective Date Seen The patient was seen on 12/13/20. Subjective Chief Complaint/HPI Mr. Caceres is a 70 year old male who presents with dyspnea secondary to atrial fibrillation with RVR and acute anemia. This morning, he denies any chest pain or dyspnea. The record request was not sent out yesterday. Today, he is on the floors and they sent out the record request. Objective Physical Examination General Exam: Positive: Alert, Cooperative Eye Exam: Positive: Sclera icteric ENT Exam: Positive: Atraumatic Neck Exam: Positive: Supple Chest Exam: Positive: Clear to auscultation Heart Exam: Positive: Rate Normal, Regular Rhythm Abdomen Exam: Positive: Normal bowel sounds, Soft; Negative: Tenderness Extremity Exam: Positive: Edema Neuro Exam: Positive: Normal Speech Psych Exam: Positive: Mental status NL, Anxiety Assessment /Plan Assessment Mr. Caceres is a 70 year old male who presents with dyspnea. His dyspnea is most likely secondary to afib with RVR and anemia. Hemoglobin responded appropriately to 2u transfusion. Hemoglobin remains stable. Otherwise, heart rate also improved, but still tachycardic. Will add on Lopressor We still have not received records from [place]. Will reach out to heme/onc when we have records. Plan/VTE VTE Prophylaxis Ordered?: Yes Plan 1. Atrial fibrillation with RVR -Started Lopressor -Due to acute symptomatic anemia, will hold off of anticoagulation until hemoglobin stable. CHADs-VASc score of 1 (for age). May only need aspirin -Otherwise, also holding off on anticoagulation incase he need another pancreatic biopsy 2. Acute anemia -Baseline hemoglobin around 12 -On admission, hemoglobin 8.7. Responded appropriately to 2u pRBC -Continue to monitor H&H -Unable to obtain iron studies and reticulocyte count as he already received blood 3. Pancreatic mass with biliary obstruction -Patient has plastic stent in place -LFT elevated, slowly improving -Total bilirubin elevated, but slowly improving -Request biopsy results from [facility] -Hepatitis panel ordered 4. Alcohol abuse -Maddrey's score 7. No need for steroids at this time -CIWA -Thiamine, Folic acid, and multivitamin 5. DVT ppx -SCD and TEDs Disposition: Pending biopsy results from [facility]. When we have results, would need to speak with heme/onc about prognosis and patient may need goals of care talk. VS, I&O, 24H, Fishbone Vital Signs/I&O Vital Signs Date Time Temp Pulse Resp B/P (MAP) Pulse Ox O2 Delivery O2 Flow Rate FiO2 12/13/20 09:21 88 126/63 12/13/20 08:00 96.8 18 100 Room Air I&O- Last 24 Hours up to 6 AM 12/13/20 06:00 Intake Total 476 ml Output Total 475 ml Balance 1 ml Laboratory Data 24H LABS Laboratory Tests 2 12/12/20 12:42: Nucleated Red Blood Cells % (auto) 0.5H 12/13/20 04:57: Nucleated Red Blood Cells % (auto) 0.3H, Anion Gap 7L, Glomerular Filtration Rate > 60.0, Calcium Level 8.8, Total Bilirubin 5.1H, Aspartate Amino Transf (AST/SGOT) 63H, Alanine Aminotransferase (ALT/SGPT) 116H, Alkaline Phosphatase 359H, Total Protein 5.5L, Albumin 1.9L, Albumin/Globulin Ratio 0.5 CBC/BMP Laboratory Tests 12/12/20 12:42 12/13/20 04:57 Microbiology Microbiology 12/11/20 Blood Culture - Preliminary, Resulted No Growth after 48 hours. All Specime... 12/11/20 Blood Culture - Preliminary, Resulted No Growth after 48 hours. All Specime... MONISHA CAMERON DO Dec 13, 2020 10:50
[2020-12-13] MEDS: MIRALAX *UNIT DOSE* 17GM PACKET PO PRN (10:53)
[2020-12-13] MEDS: ASPIRIN 81MG ENTERIC TABLET PO SCH (11:00)
[2020-12-13] MEDS: SUCRALFATE SUSP 1GM/10ML UD PO SCH ×3 (11:51→20:31)
[2020-12-13 11:59] LABS: HEPATITIS B SURFACE ANTIGEN NEGATIVE (NEGATIVE)
[2020-12-13 12:27] LABS: HEPATITIS B CORE ANTIBODY IGM NEGATIVE (NEGATIVE); HEPATITIS C VIRUS ABY INDEX 0.1 INDEX (<0.8)
[2020-12-13 14:00] VITALS: BP 119/62
[2020-12-13] MEDS: SENOKOT S TAB PO PRN (20:32)
[2020-12-13 22:00] VITALS: BP 109/77
[2020-12-14 06:00] VITALS: BP 113/77
[2020-12-14 06:52] LABS: HEMATOCRIT 35.6 % (42.0-52.0); HEMOGLOBIN 11.4 g/dl (13.5-17.5); MEAN CORPUSCULAR HEMOGLOBIN 30.2 pg (27.0-33.0); MEAN CORPUSCULAR VOLUME 94.4 fl (80.0-96.0); PLATELET COUNT, AUTOMATED 283 10^3/uL (150-450); RED BLOOD COUNT 3.77 10^6/uL (4.30-6.10); WHITE BLOOD COUNT 9.6 10^3/uL (4.0-10.0)
[2020-12-14 07:09] LABS: ALBUMIN 1.9 GM/DL (3.2-5.2); ALT/SGPT 117 U/L (12-78); BILIRUBIN,TOTAL 5.1 MG/DL (0.2-1.0); BLOOD UREA NITROGEN 9 MG/DL (7-18); CALCIUM LEVEL 8.7 MG/DL (8.8-10.2); CARBON DIOXIDE LEVEL 28 MEQ/L (21-32); CHLORIDE LEVEL 100 MEQ/L (98-107); GLOMERULAR FILTRATION RATE > 60.0 (>42); GLUCOSE, FASTING 135 MG/DL (70-100); POTASSIUM SERUM 4.3 MEQ/L (3.5-5.1); SODIUM LEVEL 135 MEQ/L (136-145); TOTAL PROTEIN 5.3 GM/DL (6.4-8.2)
[2020-12-14 08:30] VITALS: BP 138/81
[2020-12-14] MEDS: ASPIRIN 81MG ENTERIC TABLET PO SCH (09:00)
[2020-12-14] MEDS: SENOKOT S TAB PO PRN (09:37)
[2020-12-14] MEDS: MIRALAX *UNIT DOSE* 17GM PACKET PO PRN (09:37)
[2020-12-14] MEDS: PANTOPRAZOLE 40MG VIAL (C9113 PER 1) IV SCH (09:37)
[2020-12-14] MEDS: SUCRALFATE SUSP 1GM/10ML UD PO SCH ×4 (10:15→20:18)
[2020-12-14] MEDS: MULTIVITAMINS/MINERALS THERAP 1 TAB PO SCH (10:15)
[2020-12-14] MEDS: METOPROLOL TART 25 MG TABLET PO SCH ×2 (10:16→20:17)
[2020-12-14] MEDS: FOLIC ACID 1 MG TAB PO SCH (10:17)
[2020-12-14] MEDS ORDERED: MAGNESIUM CITRATE 300 ML BTL PO ONE ×2 (10:25→15:20)
--- NOTE | 2020-12-14 13:19 | IPNPDOC ---
Subjective Date Seen The patient was seen on 12/14/20. Subjective Chief Complaint/HPI Patient does not offer any complaints this morning. Denies any abdominal pain. Having dark-colored hard stools. No fever or chills. He does not want any treatment for his cancer. He has agreed to speak with hospice. Objective Physical Examination General Exam: Positive: Alert, Cooperative, No Acute Distress Eye Exam: Positive: Sclera icteric ENT Exam: Positive: Atraumatic Neck Exam: Positive: Supple Chest Exam: Positive: Clear to auscultation Heart Exam: Positive: Rate Normal, Tachycardic, Irregular Rhythm, Other; Negative: Gallops, Murmurs, Rubs Abdomen Exam: Positive: Normal bowel sounds, Soft; Negative: Tenderness Extremity Exam: Positive: Edema Neuro Exam: Positive: Normal Speech Psych Exam: Positive: Memory Intact, Oriented x 3 Assessment /Plan Assessment Mr. Caceres is a 70 year old male with pancreatic head mass, obstructive jaundice, had recent pancreatic head mass biopsy and placement of biliary stent at [facility] in the first week of December 2020 presented to our emergency room with dyspnea. He was found to have A. fib with RVR and anemia . His dyspnea is most likely secondary to afib with RVR and anemia. Hemoglobin responded appropriately to 2u transfusion. Hemoglobin remains stable. Atrial fibrillation with RVR Started Lopressor Due to acute symptomatic anemia, will hold off of anticoagulation until hemoglobin stable. CHADs-VASc score of 1 (for age). Patient refused aspirin. Acute anemia Baseline hemoglobin around 12 On admission, hemoglobin 8.7. Responded appropriately to 2u pRBC Pancreatic head mass with biliary obstruction With para-aortic lymphadenopathy and also likely metastatic deposits at the splenic hilum Had biliary stent placement in [facility] Awaiting results for the biopsy and hospitalization summary from there Patient says that he does not want any treatment for his cancer. He wanted to be DNR/DNI. He tells me he does not have any family or any close friends. He does not have any home to go to. He indicated that he would like to stay in the hospital until he dies or go to the skilled nursing. He indicated he would like to speak with hospice We will consult hospice History of alcohol abuse Continue thiamine, Folic acid, and multivitamin Plan/VTE VTE Prophylaxis Ordered?: Yes VS, I&O, 24H, Fishbone Vital Signs/I&O Vital Signs Date Time Temp Pulse Resp B/P (MAP) Pulse Ox O2 Delivery O2 Flow Rate FiO2 12/14/20 10:16 103 138/81 12/14/20 08:30 97.4 18 100 Room Air I&O- Last 24 Hours up to 6 AM 12/14/20 06:00 Intake Total 1320 ml Output Total 975 ml Balance 345 ml Laboratory Data 24H LABS Laboratory Tests 2 12/14/20 06:18: Nucleated Red Blood Cells % (auto) 0.0, Anion Gap 7L, Glomerular Filtration Rate > 60.0, Calcium Level 8.7L, Total Bilirubin 5.1H, Aspartate Amino Transf (AST/SGOT) 72H, Alanine Aminotransferase (ALT/SGPT) 117H, Alkaline Phosphatase 495H, Total Protein 5.3L, Albumin 1.9L, Albumin/Globulin Ratio 0.6 CBC/BMP Laboratory Tests 12/14/20 06:18 Microbiology Microbiology 12/13/20 Stool Occult Blood ([facility]) - Final, Complete 12/11/20 Blood Culture - Preliminary, Resulted No Growth after 72 hours. All specime... 12/11/20 Blood Culture - Preliminary, Resulted No Growth after 72 hours. All specime... Ann Marie Ryan MD Dec 14, 2020 13:19
[2020-12-14 14:00] VITALS: BP 110/70
[2020-12-14] MEDS: SENOKOT S TAB PO SCH (20:17)
[2020-12-14] MEDS: RAMELTEON 8 MG TAB (ROZEREM) PO PRN (20:18)
[2020-12-14 22:00] VITALS: BP 106/80
[2020-12-15 06:00] VITALS: BP 133/77
[2020-12-15 06:34] LABS: HEMATOCRIT 36.1 % (42.0-52.0); HEMOGLOBIN 11.5 g/dl (13.5-17.5); MEAN CORPUSCULAR HEMOGLOBIN 30.2 pg (27.0-33.0); MEAN CORPUSCULAR HGB CONC 31.9 g/dl (32.0-36.5); MEAN CORPUSCULAR VOLUME 94.8 fl (80.0-96.0); PLATELET COUNT, AUTOMATED 280 10^3/uL (150-450); RED BLOOD COUNT 3.81 10^6/uL (4.30-6.10); WHITE BLOOD COUNT 10.6 10^3/uL (4.0-10.0)
[2020-12-15 06:53] LABS: ALBUMIN 1.9 GM/DL (3.2-5.2); ALT/SGPT 126 U/L (12-78); BILIRUBIN,TOTAL 4.6 MG/DL (0.2-1.0); BLOOD UREA NITROGEN 13 MG/DL (7-18); CALCIUM LEVEL 8.6 MG/DL (8.8-10.2); CARBON DIOXIDE LEVEL 28 MEQ/L (21-32); CHLORIDE LEVEL 100 MEQ/L (98-107); CREATININE FOR GFR 0.65 MG/DL (0.70-1.30); GLOMERULAR FILTRATION RATE > 60.0 (>42); GLUCOSE, FASTING 120 MG/DL (70-100); POTASSIUM SERUM 4.3 MEQ/L (3.5-5.1); SODIUM LEVEL 133 MEQ/L (136-145); TOTAL PROTEIN 6.1 GM/DL (6.4-8.2)
[2020-12-15 08:00] VITALS: BP 126/90
[2020-12-15] MEDS: SUCRALFATE SUSP 1GM/10ML UD PO SCH ×4 (08:38→20:17)
[2020-12-15] MEDS: PANTOPRAZOLE 40MG TAB (PROTONIX) PO SCH (08:39)
[2020-12-15] MEDS: METOPROLOL TART 25 MG TABLET PO SCH ×2 (08:40→20:20)
[2020-12-15] MEDS: MULTIVITAMINS/MINERALS THERAP 1 TAB PO SCH (08:40)
[2020-12-15] MEDS: FOLIC ACID 1 MG TAB PO SCH (08:40)
[2020-12-15] MEDS: SENOKOT S TAB PO SCH ×2 (08:40→20:17)
[2020-12-15 10:00] VITALS: BP 126/90
--- NOTE | 2020-12-15 11:19 | IPNPDOC ---
Subjective Date Seen The patient was seen on 12/15/20. Subjective Chief Complaint/HPI Had several bowel movements after mag citrate. Says that the constipation has resolved. No abdominal pain. Feels okay Objective Physical Examination General Exam: Positive: Alert, Cooperative, No Acute Distress Eye Exam: Positive: Sclera icteric ENT Exam: Positive: Atraumatic Neck Exam: Positive: Supple Chest Exam: Positive: Clear to auscultation Heart Exam: Positive: Rate Normal, Tachycardic, Irregular Rhythm, Other; Negative: Gallops, Murmurs, Rubs Abdomen Exam: Positive: Normal bowel sounds, Soft; Negative: Tenderness Extremity Exam: Positive: Edema Neuro Exam: Positive: Normal Speech Psych Exam: Positive: Memory Intact, Oriented x 3 Assessment /Plan Assessment Mr. Caceres is a 70 year old male with pancreatic head mass, obstructive jaundice, had recent pancreatic head mass biopsy and placement of biliary stent at [facility] in the first week of December 2020 presented to our emergency room with dyspnea. He was found to have A. fib with RVR and anemia . His dyspnea is most likely secondary to afib with RVR and anemia. Hemoglobin responded appropriately to 2u transfusion. Hemoglobin remains stable. Atrial fibrillation with RVR Started Lopressor Rate now controlled Patient refused aspirin. Acute anemia Baseline hemoglobin around 12 On admission, hemoglobin 8.7. Responded appropriately to 2u pRBC Pancreatic head mass with biliary obstruction With para-aortic lymphadenopathy and also likely metastatic deposits at the splenic hilum Had biliary stent placement in [facility] Awaiting results for the biopsy and hospitalization summary from there Patient says that he does not want any treatment for his cancer. He wanted to be DNR/DNI. He tells me he does not have any family with whom he is in contact or any close friends. He does not have any home to go to. He would like to go into hospice house Consulted hospice History of alcohol abuse Continue thiamine, Folic acid, and multivitamin Plan/VTE VTE Prophylaxis Ordered?: Yes VS, I&O, 24H, [place] Vital Signs/I&O Vital Signs Date Time Temp Pulse Resp B/P (MAP) Pulse Ox O2 Delivery O2 Flow Rate FiO2 12/15/20 10:00 98.3 91 18 126/90 100 Room Air I&O- Last 24 Hours up to 6 AM 12/15/20 06:00 Intake Total 1250 ml Output Total 275 ml Balance 975 ml Laboratory Data 24H LABS Laboratory Tests 2 12/15/20 06:10: Nucleated Red Blood Cells % (auto) 0.0, Anion Gap 5L, Glomerular Filtration Rate > 60.0, Calcium Level 8.6L, Total Bilirubin 4.6H, Aspartate Amino Transf (AST/SGOT) 83H, Alanine Aminotransferase (ALT/SGPT) 126H, Alkaline Phosphatase 616H, Total Protein 6.1L, Albumin 1.9L, Albumin/Globulin Ratio 0.5 CBC/BMP Laboratory Tests 12/15/20 06:10 Microbiology Microbiology 12/13/20 Stool Occult Blood (KOKI) - Final, Complete 12/11/20 Blood Culture - Preliminary, Resulted No Growth after 72 hours. All specime... 12/11/20 Blood Culture - Preliminary, Resulted No Growth after 72 hours. All specime... Ann Marie Ryan MD Dec 15, 2020 11:19
[2020-12-15 14:00] VITALS: BP 128/78
[2020-12-15 22:00] VITALS: BP 114/73
[2020-12-15] MEDS ORDERED: diphenhydrAMINE 25MG CAP PO ONE (22:00)
[2020-12-16] MEDS: RAMELTEON 8 MG TAB (ROZEREM) PO PRN (00:37)
[2020-12-16 06:00] VITALS: BP 115/71
[2020-12-16] MEDS ORDERED: MIRA1POW3 PO (08:17)
[2020-12-16] MEDS ORDERED: HYOS125TA PO (08:17)
[2020-12-16] MEDS ORDERED: SUCR1TA PO (08:17)
[2020-12-16] MEDS ORDERED: MORP1SOL5 PO (08:17)
[2020-12-16] MEDS ORDERED: PANT40TA29 PO (08:17)
[2020-12-16] MEDS ORDERED: ATIV1TAB10 PO (08:17)
[2020-12-16] MEDS ORDERED: METO1TAB87 PO (08:17)
[2020-12-16 09:00] VITALS: BP 118/84
[2020-12-16] MEDS: SUCRALFATE SUSP 1GM/10ML UD PO SCH (09:13)
[2020-12-16] MEDS: SENOKOT S TAB PO SCH (09:13)
[2020-12-16] MEDS: MULTIVITAMINS/MINERALS THERAP 1 TAB PO SCH (09:14)
[2020-12-16 09:15] VITALS: BP 118/84
[2020-12-16] MEDS: FOLIC ACID 1 MG TAB PO SCH (09:15)
[2020-12-16] MEDS: PANTOPRAZOLE 40MG TAB (PROTONIX) PO SCH (09:15)
[2020-12-16] MEDS: METOPROLOL TART 25 MG TABLET PO SCH (09:15)
--- NOTE | 2020-12-16 11:53 | DS.PDOC ---
Discharge Summary General Date of Admission Dec 11, 2020 at 10:49 Date of Discharge 12/16/20 Discharge Summary PROCEDURES PERFORMED DURING STAY: [None]. 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 Obstructive Jaundice Afib with rvr. Anemia Peptic ulcer disease COMPLICATIONS/CHIEF COMPLAINT: Anemia,Jaundice,Rapid Atrial Fibrillation. HOSPITAL COURSE: Mr. Caceres is a 70 year old male with h/o pancreatic head mass, abdominal lymphadenopathy, obstructive jaundice, had recent pancreatic head mass biopsy and placement of biliary stent at [facility] in the first week of December 2020 presented to our emergency room with dyspnea. He was found to have A. fib with RVR and anemia . His dyspnea is most likely secondary to afib with RVR and anemia. Hemoglobin responded appropriately to 2u transfusion. Hemoglobin remains stable. He is now back in sinus rhythm. The initial diagnosis of pancreatic cancer has been refuted. The EUS biopsy report from [facility] was reviewed and discussed with Patient. EUS showed many malignant appearing lymph nodes in the celiac region, peripancreatic region, zeenat hepatis. Largest one obstructing the bileduct without any obvious mass int eh pancreas. The largest lesion was extending to the duodenal wall. No pathology in CBD, No pathology in ampulla. a 40 mm mass in spleen. ERCP showed mid and distal CBD stricture s/p dilatation and stenting. biopsy shows Atypical lymphoid tissue in a background of necrosis CD45 +ve consistent with lymphocytes. Lymphocytes stain strongly with [id number] with B lymphocytes, scattered t cels are present on CD3. proliferation index is 35%. Pancytokeratin stain shows no evidence of metastatic disease. The findings are concerning for nodlal involvement by a lymphoproliferative neoplasm. Discussed this with Patient and i explained that this is likely Lymphoma which has a better prognosis than metastatic pancreatic cancer and often has very good response to treatment. i offered to consult oncology to further discuss these findings/ possible diagnoses/ treatment options/ prognosis. Patient did not wish to see oncology. He still did not want any treatment even if this was Lymphoma. 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 Atrial fibrillation with RVR Started Lopressor Rate now controlled Patient refused aspirin. Acute anemia Baseline hemoglobin around 12 On admission, hemoglobin 8.7. Responded appropriately to 2u pRBC [place] Pancreatic head mass with biliary obstruction with celiac and paraaortic lymphadenopathy S/p EUS, ERCP with dilatation of CBD stricture and plastic biliary stent placement. They recommended change of stent to metallic one later. EUS: Esophagitis, hiatal hernia, gastritis, duodenal ulcers. Biopsy suggestive of Lymphoproliferative disorder as mentioned above. Pathologist recommended flow cytometry and possible repeat biopsy as the sample was small with necrosis and crush artifact which markedly limited interpretation. Patient says that he does not want any treatment for his cancer. He wanted to be DNR/DNI. He tells me he does not have any family with whom he is in contact or any close friends. He does not have any home to go to. He would like to go into hospice house DISCHARGE MEDICATIONS: Please see below. ALLERGIES: Please see below. PHYSICAL EXAMINATION ON DISCHARGE: VITAL SIGNS: Please see below. General Exam: Positive: Alert, Cooperative, No Acute Distress Eye Exam: Positive: Sclera icteric ENT Exam: Positive: Atraumatic Neck Exam: Positive: Supple Chest Exam: Positive: Clear to auscultation Heart Exam: Positive: Rate Normal, Tachycardic, Irregular Rhythm, Other; Negative: Gallops, Murmurs, Rubs Abdomen Exam: Positive: Normal bowel sounds, Soft; Negative: Tenderness Extremity Exam: Positive: Edema Neuro Exam: Positive: Normal Speech Psych Exam: Positive: Memory Intact, Oriented x 3 LABORATORY DATA: Please see below. ACTIVITY: [As tolerated]. DIET: as tolerated DISPOSITION: 50 [facility]ospice Home. DISCHARGE CONDITION: [Stable]. TIME SPENT ON DISCHARGE: 35 minutes. Vital Signs/I&Os Vital Signs Date Time Temp Pulse Resp B/P (MAP) Pulse Ox O2 Delivery O2 Flow Rate FiO2 12/16/20 09:15 90 118/84 12/16/20 09:00 97.5 8 98 Room Air I&O- Last 24 Hours up to 6 AM 12/16/20 06:00 Intake Total 720 ml Balance 720 ml Laboratory Data Labs 24H Laboratory Tests 2 12/15/20 15:29: Coronavirus (COVID-19)(PCR) NEGATIVE Microbiology Microbiology 12/13/20 Stool Occult Blood ([facility]OKI) - Final, Complete 12/11/20 Blood Culture - Final, Complete NO GROWTH AFTER 5 DAYS 12/11/20 Blood Culture - Final, Complete NO GROWTH AFTER 5 DAYS Discharge Medications Scheduled Metoprolol Tartrate (Metoprolol Tartrate) 25 Mg Tablet, 25 MG PO BID Pantoprazole Sodium (Pantoprazole Sodium) 40 Mg Tablet.dr, 40 MG PO QAM Sucralfate (Sucralfate) 1 Gm Tablet, 1 TAB PO TID Scheduled PRN Hyoscyamine Sulfate (Hyoscyamine Sulfate) 0.125 Mg Tab.subl, 0.125 MG PO Q4HP PRN for TERMINAL SECRETIONS Use sublingually if unable to swallow Lorazepam (Ativan) 0.5 Mg Tablet, 0.5 MG PO Q4HP PRN for ANXIETY/AGITATION Use sublingually if unable to swallow Morphine Sulfate (Morphine Sulfate) 100 Mg/5 Ml Solution, 0.25-1 ML PO Q2H PRN for PAIN OR DYSPNEA Use sublingually if unable to swallow Polyethylene Glycol 3350 (Miralax) 17 Gm Powd.pack, 1 PKT PO DAILYPRN PRN for CONSTIPATION Allergies Coded Allergies: prednisone (Verified Allergy, Severe, suicidal ideation w/steroids, 12/05/20) Ann Marie Ryan MD Dec 16, 2020 11:53
== END 2020-12-16 10:54 | disposition hospice, home (50) | DRG 308 ==
LOC: M ED 05:55 → M ED INP 10:49 → ENRESERV 12-12 13:51 → M PCU 12-12 14:35 → M MSPAV 12-13 10:41
PROVIDERS: ADMIT Internal Medicine; ATTEND Internal Medicine Nephrology
PROC: 30233N1 Transfusion of Nonautologous Red Blood Cells into Peripheral Vein, Percutaneous Approach (ICD-10-PCS; principal; 2020-12-11)
DX: I48.91 Unspecified atrial fibrillation (principal); K83.1 Obstruction of bile duct; I24.8 Other forms of acute ischemic heart disease; K27.9 Peptic ulcer, site unspecified, unspecified as acute or chronic, without hemorrhage or perforation; D64.9 Anemia, unspecified; Z51.5 Encounter for palliative care; K44.9 Diaphragmatic hernia without obstruction or gangrene; K86.89 Other specified diseases of pancreas; Z66 Do not resuscitate; Z79.899 Other long term (current) drug therapy; F17.210 Nicotine dependence, cigarettes, uncomplicated; F10.10 Alcohol abuse, uncomplicated